=== PATIENT | female | born 1930 | race Caucasian/White ===

== ENCOUNTER 2017-02-10 19:01 | Emergency (ER) | payer MEDICARE ==
[~2017-02-10] VITALS: Ht 162.6 cm; Wt 68.0 kg
[~2017-02-10 19:01] MED LIST: ACET-171 PO; ALPR0.254 PO; AMLO5TAB2 PO; ASCO-294 PO; ASPI-973 PO; CHOL100043 PO; FUR20 PO; HYDR-4003 PO; LISI10TA PO; NITR0.4T SL; OMEP20CA11 PO; ONDA4TAB6 PO; WHEA1POW6 PO
[2017-02-10 19:14] VITALS: BP 159/53; PULSE 66; RESP 17; O2SAT 97
[2017-02-10 19:20] LABS: BASOPHILS % (AUTO) 0.7 % (0-3); EOSINOPHILS % (AUTO) 3.4 % (0-5); MONOCYTES % (AUTO) 11.5 % (4-12); Mean Corpuscular Hemoglobin 30.2 pg (27.0-35.0); NEUTROPHILS % (AUTO) 53.1 % (40-74); Platelet Count 242 bil/L (150-400)
--- NOTE | 2017-02-10 19:31 | ED.REPORT ---
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 She reports that her "pulse was driving her nuts." Pt has a hx of recurrent cp and throbbing pulse. She confirms nausea and denies diaphoresis. She also c/o left hip pain. Nursing Notes Stated Complaint: CHEST PAIN Chief Complaint: Chest Pain Nursing Notes Reviewed: Yes Allergies: Coded Allergies: atenolol (Verified Allergy, Severe, BRADYCARDIA, MALAISE, 04/10/16) amoxicillin (Verified Allergy, Unknown, 04/10/16) clavulanic acid (Verified Allergy, Unknown, 04/10/16) nitrofurantoin (Verified Allergy, Unknown, nausea/vomiting, 06/30/16) Scheduled Amlodipine (Amlodipine) 5 Mg Tablet 5 MG PO DAILY Ascorbate Calcium (Vitamin C) 500 Mg Tablet 500 MG PO DAILY Aspirin (Aspirin) 81 Mg Tablet 81 MG PO DAILY Cholecalciferol (Vitamin D3) (Vitamin D) 1,000 Unit Tablet 2,000 UNIT PO DAILY Omeprazole (Omeprazole) 20 Mg Capsule.dr MG PO DAILY Wheat Dextrin (Benefiber) 3 Gram/4 Gram Powd.pack 2 TSP PO DAILY Scheduled PRN Acetaminophen (Acetaminophen) 500 Mg Tablet 500 MG PO Q6H PRN PRN For Pain Alprazolam (Alprazolam) 0.25 Mg Tablet 0.125-0.25 MG PO TID PRN PRN For Anxiety Furosemide (Furosemide) 20 Mg Tab 10 MG PO DAILY PRN PRN edema Hydrocodone-Acetaminophen 5-325 mg (Hydrocodone-Acetaminophen 5-325 mg) 1 Each Tablet 0.5-1 EACH PO q6 hr PRN PRN For Pain Lisinopril (Lisinopril) 10 Mg Tablet 10 MG PO DAILY PRN PRN SBP>175 Nitroglycerin SL (Nitrostat) 0.4 Mg Tab.subl 0.4 MG SL Q5MIN PRN PRN chest pain Ondansetron (Zofran) 4 Mg Tablet 4 MG PO QID PRN PRN For Nausea General Time Seen by MD: 19:17 Chief Complaint Chest pain Hx Obtained From: Patient Arrived By: Ambulance Sudden in Onset?: Yes Onset Occurred: Just prior to arrival Symptom Duration: Since onset Location: : Chest left Radiation: : Does not radiate Severity: Current: Mild Past Medical History Past Medical History Notes: Myocardial profusion scan NM 01/01/13: IMPRESSION: 1. Normal myocardial perfusion images. 2. Normal left ventricular volume and systolic function. 3. No chest pain or diagnostic EKG changes for ischemia. Dictated by: Liss Calixto M.D. on 01/01/2013 at 12:56 Approved by: Liss Calixto M.D. on 01/01/2013 at 12:56 Nuclear medicine scan 04/02/12: IMPRESSION: Depressed gallbladder ejection fraction at 4%. Etiologies can include gastroparesis or obstruction. Clinical correlation is recommended. Dictated by: Brenda Goldberg M.D. on 04/02/2012 at 16:26 Approved by: Brenda Goldberg M.D. on 04/02/2012 at 16:26 Past Medical History Chronic back pain, urinary incontinence, vertigo Anemia been on iron transfusions. hospitalized for pneumonia and sepsis in July 2014. labile HTN, recent community-acquired pneumonia, mild anemia due to IV fluids, chronic back pain on narcotics, urinary incontinence, vertigo, dyslipedemia, depression, A-fib (paroxysmal, not on anticoagulation), angina C. Diff. ho ureteral laceration following biopsy in 2016 Reports: Congestive heart failure, GERD, Hyperlipidemia, Hypertension Reports: Atrial fibrillation Past Surgical History ureteral stent for ureteral injury in 2016 Reports: Cataract surgery, Cholecystectomy Reports: Hip replacement Smoking History Former Smoker Social History Alcohol Use: Denies alcohol use Drug Use: Denies drug use Other Social History: Lives alone, Local resident Ambulatory Status Independent Review of Systems Cardiovascular: Reports: Chest pain GI: Reports: Nausea Musculoskeletal: Reports: Joint pain (left hip) Skin: Denies Diaphoresis Complete sys rev & neg: except as marked. Physical Exam Initial Vital Signs Vital Signs (First) Date Time Temp Pulse Resp B/P Pulse Ox O2 Delivery O2 Flow Rate FiO2 02/10/17 19:14 36.6 66 17 159/53 97 Nasal Cannula 1 Initial VS: Reviewed, Vital signs normal Head / Eyes: Atraumatic, Normocephalic ENT: Mucous membranes moist, Conjunctiva normal Neck: Supple, Non-tender Back: No CVA tenderness Extremities: Vascular intact, No swelling Skin: Warm, Dry Neurologic: Alert, Oriented Psychiatric: Mood/affect normal, Behavior normal General/Constitutional: Awake, Alert, Cooperative, Not toxic appearing Respiratory / Chest: Atraumatic, Breath sounds NL, Breath sounds = bilat Cardiovascular: Heart rate NL, Regular rhythm, Heart sounds NL Abdomen: Atraumatic, Soft, Non-tender Interpretation & Diagnostics Lab Results Interpretation Result Diagram: 02/10/17190702/10/17 190 Test 02/10/17 19:08 02/10/17 20:04 White Blood Count 5.6th/mm3 (3.8-10.1) Red Blood Count 3.61mil/mm3 (3.90-5.20) Hemoglobin 10.9g/dL (12.0-15.6) Hematocrit 33.2% (35.0-46.0) Mean Corpuscular Volume 92.0fL (81-100) Mean Corpuscular Hemoglobin 30.2pg (27.0-35.0) Mean Corpuscular Hemoglobin Concent 32.8% (32.0-37.0) Red Cell Distribution Width 15.2% (12.3-15.4) Platelet Count 242bil/L (150-400) Neutrophils (%) (Auto) 53.1% (40-74) Lymphocytes (%) (Auto) 31.3% (14-46) Monocytes (%) (Auto) 11.5% (4-12) Eosinophils (%) (Auto) 3.4% (0-5) Basophils (%) (Auto) 0.7% (0-3) Sodium Level 137mEq/L (134-144) Potassium Level 4.1mEq/L (3.5-5.2) Chloride Level 100mEq/L (97-108) Carbon Dioxide Level 23mmol/L (18-29) Blood Urea Nitrogen 21mg/dL (8-27) Creatinine 0.69mg/dL (0.57-1.00) Estimat Glomerular Filtration Rate 115mL/min (>59) Glucose Level 106mg/dL (60-99) Calcium Level 10.3mg/dL (8.5-10.1) Magnesium Level 2.1mg/dL (1.6-2.6) Total Bilirubin 0.3mg/dL (0.0-1.2) Aspartate Amino Transf (AST/SGOT) 19U/L (0-50) Alanine Aminotransferase (ALT/SGPT) 14U/L (0-32) Alkaline Phosphatase 53U/L (25-165) Troponin T < 0.010ug/L (0.0-0.011) Total Protein 7.7g/dL (6.4-8.4) Albumin 4.4g/dL (3.4-5.0) Hold Urine Received (Received) Lab Results Interpretation: CBC nl CMp nl Troponin negative (symptoms started yesterday) ECG Interpretation ECG Interpretation: LVH Time: 19:13 Interpreted by: ED physician Normal ECG Interpretation: Normal sinus rhythm (67) X-Ray Chest Interpretation Chest Xray Interpretation: IMPRESSION: 1. Sequelae of old granulomatous disease redemonstrated without definite acute cardiopulmonary disease. Dictated by: Nithin Ching M.D. on 02/10/2017 at 21:24 Approved by: Nithin Ching M.D. on 02/10/2017 at 21:28 View: Portable Interpretation / Wet Read by: Interpret - Radiologist X-Ray Interpretation Xray Interpretation: PELVIS X-RAY IMPRESSION: 1. New round lucent lesion in the left iliac wing with a sclerotic margin and suggestion of mild periosteal reaction. 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 Further evaluation may be obtained with an MRI or bone scan. 2. Bilateral hip prostheses redemonstrated without definite evidence of hardware failure. Dictated by: Nithin Ching M.D. on 02/10/2017 at 21:30 Approved by: Nithin Ching M.D. on 02/10/2017 at 21:34 X-Ray Ordered: Pelvis Re-Eval/Medical Decision Source of Hx: Old records Counseled Regarding: Diagnosis, Lab results, Need for follow-up, When/why to return to ED Discharge & Departure Primary Impression: Chest pain Chest pain type: unspecified Qualified Code: R07.9 - Chest pain, unspecified Disposition: Home Discharge Condition All VS Reviewed: Yes Condition: Stable Referrals: Sirisha Anaya MD (PCP) Scribe Attestation Portion of this note were transcribed by Ellen Dang. Dr. Mau Coulter, personally performed the history, physical exam, and medical decision-making: I reviewed and confirmed the accuracy for the information in the transcribed note. Signed by: jazmine Dumas, 02/10/17 2100 copies to: Sirisha Anaya MD, Matthew F MD Feb 10, 2017 19:31 Ellen Dang Feb 10, 2017 19:54
[2017-02-10 19:57] LABS: Magnesium 2.1 mg/dL (1.6-2.6)
[2017-02-10 20:03] LABS: TROPONIN T < 0.010 ug/L (0.0-0.011)
--- NOTE | 2017-02-10 21:29 | DRSVH ---
PROCEDURE: X-RAY CHEST ONE VIEW, PORTABLE ([id number]) INDICATIONS: CHEST PAIN TECHNIQUE: One view of the chest was acquired. COMPARISON: [facility], CR, XR CHEST 1VW (PORTABLE), 04/10/2016, 16:35. FINDINGS: Surgical changes and devices: None. Lungs and pleura: No pleural effusions or pneumothorax. There is mild interstitial prominence redem onstrated consistent with chronic changes. 2 dense nodules are again noted in the right lung consist ent with calcified granulomas. No acute consolidation. Mediastinum: There are calcified mediastinal and right hilar lymph nodes compatible with granulomatou s disease. Heart size is normal. Bones and chest wall: No suspicious bony lesions. Overlying soft tissues appear unremarkable. IMPRESSION: 1. Sequelae of old granulomatous disease redemonstrated without definite acute cardiopulmonary disea se. Dictated by: Nithin Ching M.D. on 02/10/2017 at 21:24 Approved by: Nithin Ching M.D. on 02/10/2017 at 21:28
--- NOTE | 2017-02-10 21:36 | DRSVH ---
PROCEDURE: X-RAY PELVIS, ONE OR TWO VIEWS ([id number]) INDICATIONS: Pain L iliac crest x 1 month TECHNIQUE: 2 frontal views of the pelvis acquired. COMPARISON: [facility], CR, XR PELVIS 1 OR 2VW, 07/18/2016, 9:40. [facility] [place], CR, XR PELVIS W LATERAL HIP RT, 07/26/2016, 10:14. [facility], CR, PELVIS 1 OR 2VW, 05/28/2012, 15:13. FINDINGS: Bones: There is a round lucent lesion in the left iliac wing with sclerotic margins, measuring up to 1.5 cm. There is suggestion of associated mild periosteal reaction. Bilateral hip prostheses appea r unchanged in alignment. No periprosthetic fractures or suspicious new periprosthetic lucencies. T here is degenerative disc disease and facet arthropathy in the lower lumbar spine. Soft tissues: Visualized bowel gas pattern is normal. There is a lobulated calcification in the pel vis compatible with calcified fibroid. IMPRESSION: 1. New round lucent lesion in the left iliac wing with a sclerotic margin and suggestion of mild per iosteal reaction. 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 Furth er evaluation may be obtained with an MRI or bone scan. 2. Bilateral hip prostheses redemonstrated without definite evidence of hardware failure. Dictated by: Nithin Ching M.D. on 02/10/2017 at 21:30 Approved by: Nithin Ching M.D. on 02/10/2017 at 21:34
[2017-02-10 22:19] VITALS: BP 180/73; PULSE 71; RESP 18; O2SAT 97
== END 2017-02-10 22:21 | disposition home or self-care (01) ==
LOC: EDBD 19:01 → EDUNIT# 19:01 → SED 19:01
DX: R07.9 Chest pain, unspecified (principal); R11.0 Nausea; M25.552 Pain in left hip; I48.0 Paroxysmal atrial fibrillation; I50.9 Heart failure, unspecified; K21.9 Gastro-esophageal reflux disease without esophagitis; E78.5 Hyperlipidemia, unspecified; I10 Essential (primary) hypertension; Z96.643 Presence of artificial hip joint, bilateral; Z96.0 Presence of urogenital implants; Z87.891 Personal history of nicotine dependence; Z79.82 Long term (current) use of aspirin; Z88.8 Allergy status to other drugs, medicaments and biological substances; Z88.0 Allergy status to penicillin; Z88.1 Allergy status to other antibiotic agents

== ENCOUNTER 2017-02-18 14:53 | Emergency (ER) | payer MEDICARE ==
[~2017-02-18] VITALS: Ht 162.6 cm; Wt 68.2 kg
[2017-02-18 14:58] VITALS: BP 182/64; PULSE 68; RESP 20; O2SAT 99
--- NOTE | 2017-02-18 15:06 | ED.REPORT ---
HPI-Chest Pain 40 and Over Date of Service Feb 18, 2017 ED Provider: Dr. Holman Pt is an 87 year old female with a hx of HTN, CHF, afib, hyperlipidemia presenting to the ED from complaining of erratic blood pressure onset 1 week ago. Associated symptoms include mild headache, fatigue, chest fullness, urinary frequency. Denies abdominal pain, chest pain, dysuria, cough, sputum, numbness, weakness. She states that her blood pressure has been erratic for the past week, causing her to be fatigued. Pt takes 10mg Amlodipine and 10-20 mg Lisinopril daily. Nursing Notes Stated Complaint: CHEST PRESSURE, ERRATIC BP, FATIGUE Chief Complaint: Chest Pain Nursing Notes Reviewed: Yes Allergies: Coded Allergies: atenolol (Verified Allergy, Severe, BRADYCARDIA, MALAISE, 04/10/16) amoxicillin (Verified Allergy, Unknown, 04/10/16) clavulanic acid (Verified Allergy, Unknown, 04/10/16) nitrofurantoin (Verified Allergy, Unknown, nausea/vomiting, 06/30/16) Scheduled Amlodipine (Amlodipine) 5 Mg Tablet 5 MG PO DAILY Ascorbate Calcium (Vitamin C) 500 Mg Tablet 500 MG PO DAILY Aspirin (Aspirin) 81 Mg Tablet 81 MG PO DAILY Cholecalciferol (Vitamin D3) (Vitamin D) 1,000 Unit Tablet 2,000 UNIT PO DAILY Omeprazole (Omeprazole) 20 Mg Capsule.dr MG PO DAILY Wheat Dextrin (Benefiber) 3 Gram/4 Gram Powd.pack 2 TSP PO DAILY Scheduled PRN Acetaminophen (Acetaminophen) 500 Mg Tablet 500 MG PO Q6H PRN PRN For Pain Alprazolam (Alprazolam) 0.25 Mg Tablet 0.125-0.25 MG PO TID PRN PRN For Anxiety Furosemide (Furosemide) 20 Mg Tab 10 MG PO DAILY PRN PRN edema Hydrocodone-Acetaminophen 5-325 mg (Hydrocodone-Acetaminophen 5-325 mg) 1 Each Tablet 0.5-1 EACH PO q6 hr PRN PRN For Pain Lisinopril (Lisinopril) 10 Mg Tablet 10 MG PO DAILY PRN PRN SBP>175 Nitroglycerin SL (Nitrostat) 0.4 Mg Tab.subl 0.4 MG SL Q5MIN PRN PRN chest pain Ondansetron (Zofran) 4 Mg Tablet 4 MG PO QID PRN PRN For Nausea General Time Seen by MD: 15:05 Chief Complaint Other (Erratic blood pressure) Hx Obtained From: Patient Arrived By: Walk-in Sudden in Onset?: No Onset Occurred: 1 week ago Symptom Duration: Since onset Severity: Current: No pain currently Severity: Maximum: No pain Recent Healthcare: No recent hospitalization, Recent doctor visit Similar Sx Previous: No Past Medical History Past Medical History Notes: Myocardial profusion scan NM 01/01/13: IMPRESSION: 1. Normal myocardial perfusion images. 2. Normal left ventricular volume and systolic function. 3. No chest pain or diagnostic EKG changes for ischemia. Dictated by: Liss Calixto M.D. on 01/01/2013 at 12:56 Approved by: Liss Calixto M.D. on 01/01/2013 at 12:56 Nuclear medicine scan 04/02/12: IMPRESSION: Depressed gallbladder ejection fraction at 4%. Etiologies can include gastroparesis or obstruction. Clinical correlation is recommended. Dictated by: Brenda Goldberg M.D. on 04/02/2012 at 16:26 Approved by: Brenda Goldberg M.D. on 04/02/2012 at 16:26 Past Medical History Osteoarthritis Chronic back pain, Anemia been on iron transfusions. hospitalized for pneumonia and sepsis in July 2014. labile HTN, community-acquired pneumonia, mild anemia due to IV fluids, chronic back pain on narcotics, urinary incontinence, vertigo, dyslipedemia, depression, A-fib (paroxysmal, not on anticoagulation), angina C. Diff. ho ureteral laceration following biopsy in 2016 Diverticulosis of colon bradycardia V tach PMC Reports: Congestive heart failure, GERD, Hyperlipidemia, Hypertension Reports: Atrial fibrillation Past Surgical History ureteral stent for ureteral injury in 2016 Reports: Cataract surgery, Cholecystectomy Reports: Hip replacement Smoking History Former Smoker Social History Alcohol Use: Denies alcohol use Drug Use: Denies drug use Other Social History: Lives alone, Local resident Ambulatory Status Independent Review of Systems Constitutional: Reports: Fatigue, Denies: Chills, Fever Respiratory: Denies: Non-productive cough, Prod cough, clear Cardiovascular: Denies: Chest pain GI: Denies: Abdominal pain Neurologic: Reports: Headache, Denies: Numbness, Weakness Complete sys rev & neg: except as marked. Female: Reports: Urinary frequency, Denies: Dysuria Physical Exam Initial Vital Signs Vital Signs (First) Date Time Temp Pulse Resp B/P Pulse Ox O2 Delivery O2 Flow Rate FiO2 02/18/17 14:58 36.8 68 20 182/64 99 Room Air Initial VS: Reviewed Head / Eyes: Atraumatic, Normocephalic, PERRL ENT: Mucous membranes moist, Conjunctiva normal, No scleral icterus Neck: Supple, Non-tender, Full range of motion Skin: Warm, Dry, No cyanosis Neurologic: Alert, Oriented, Nonfocal Psychiatric: Mood/affect normal, Behavior normal, Normal thought content General/Constitutional: Awake, Alert, No acute distress, Well appearing Respiratory / Chest: Breath sounds NL, Breath sounds = bilat, No respiratory distress, No rales, No rhonchi, No wheezing, No stridor, No chest tenderness Cardiovascular: Heart rate NL, Regular rhythm, Heart sounds NL, No murmurs, Peripheral circulation NL, Pulses = bilaterally, No gross BP differential Abdomen: Soft, Non-tender, No guarding, No rebound, BS normoactive, No distention Interpretation & Diagnostics Interpretation & Diagnostics: PROCEDURE: NM HEPATOBILIARY IMAGING 04/02/12 IMPRESSION: Depressed gallbladder ejection fraction at 4%. Etiologies can include gastroparesis or obstruction. Clinical correlation is recommended. Dictated by: Brenda Goldberg M.D. on 04/02/2012 at 16:26 Lab Results Interpretation Result Diagram: 02/18/17 1530 02/18/17 1530 Test 02/18/17 15:30 02/18/17 17:25 White Blood Count 5.7th/mm3 (3.8-10.1) Red Blood Count 3.56mil/mm3 (3.90-5.20) Hemoglobin 10.7g/dL (12.0-15.6) Hematocrit 33.0% (35.0-46.0) Mean Corpuscular Volume 92.7fL (81-100) Mean Corpuscular Hemoglobin 30.1pg (27.0-35.0) Mean Corpuscular Hemoglobin Concent 32.4% (32.0-37.0) Red Cell Distribution Width 15.1% (12.3-15.4) Platelet Count 238bil/L (150-400) Neutrophils (%) (Auto) 57.6% (40-74) Lymphocytes (%) (Auto) 30.2% (14-46) Monocytes (%) (Auto) 8.8% (4-12) Eosinophils (%) (Auto) 2.5% (0-5) Basophils (%) (Auto) 0.7% (0-3) Sodium Level 138mEq/L (134-144) Potassium Level 4.2mEq/L (3.5-5.2) Chloride Level 101mEq/L (97-108) Carbon Dioxide Level 22mmol/L (18-29) Blood Urea Nitrogen 19mg/dL (8-27) Creatinine 0.56mg/dL (0.57-1.00) Estimat Glomerular Filtration Rate 146mL/min (>59) Glucose Level 107mg/dL (60-99) Calcium Level 10.1mg/dL (8.5-10.1) Magnesium Level 2.1mg/dL (1.6-2.6) Total Bilirubin 0.4mg/dL (0.0-1.2) Aspartate Amino Transf (AST/SGOT) 20U/L (0-50) Alanine Aminotransferase (ALT/SGPT) 12U/L (0-32) Alkaline Phosphatase 52U/L (25-165) Total Protein 7.8g/dL (6.4-8.4) Albumin 4.3g/dL (3.4-5.0) Hold [place] Tube Received (Received) Troponin T < 0.010ug/L (0.0-0.011) ECG Interpretation ECG Interpretation: No ST changes. Probable LVH. Time: 15:09 Interpreted by: ED physician Normal ECG Interpretation: Normal rate (61), Normal sinus rhythm X-Ray Chest Interpretation Chest Xray Interpretation: IMPRESSION: No acute process. Dictated by: Noé Palafox M.D. on 02/18/2017 at 15:33 View: Portable, 1 view Interpretation / Wet Read by: Interpret - Radiologist CT Head Interpretation IMPRESSION: 1. No acute intracranial abnormality. 2. Volume loss and small vessel ischemic disease. Dictated by: Noé Palafox M.D. on 02/18/2017 at 16:05 CT Chest Interpretation IMPRESSION: 1. Bilateral lower lobe pneumonia. 2. No pulmonary embolus. 3. Remote granulomatous disease. Dictated by: Noé Palafox M.D. on 02/18/2017 at 17:55 Study type: CT pulm angiogram Interpretation / Wet Read by: Interpret - Radiologist Re-Eval/Medical Decision Med Decision/Clinical Course Overall no obvious life threatening pathology can be found, the patient has no signs or symptoms of pneumonia and declines antibiotics in the ER. Recommend that she increase her dose of daily lisinopril and be diligent about taking amlodipine. Her PCP provider burial needs salesperson was contacted and agrees to establish close follow-up. Return precautions given. Time of Eval: 18:18 Patient Status: Condition improved Re-Evaluation/Progress Note: Denies cough, sputum, fever or chills. Time of Eval: 18:28 Patient Status: Condition improved Re-Evaluation/Progress Note: Discussed consultation with PCP and plan for discharge. Pt understands and agrees. 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 Mena burial needs salesperson for Dr. Anaya. Call in the morning and will get her into the clinic. Agrees with plan for no antibiotics. Counseled Regarding: Diagnosis, Lab results, Need for follow-up, When/why to return to ED Discharge & Departure Primary Impression: Hypertension Hypertension type: unspecified secondary hypertension Hypertension goal: unspecified goal Qualified Code: I15.9 - Secondary hypertension, unspecified Disposition: Home Discharge Condition All VS Reviewed: Yes Condition: Improved Patient Instructions: Angina (ED) Additional Instructions: No obvious life-threatening cause for your symptoms can be found. Continue taking your amlodipine at 5 mg twice a day. Take lisinopril 20 mg in the morning. Call your primary care doctor's office in the morning for a close follow-up appointment. Return to the ER if you develop severe chest pain, severe trouble breathing, lethargy, severe headache or any other life-threatening concerns. Referrals: Sirisha Anaya MD (PCP) Hazel Attestation Portions of this note were transcribed by Dania Crocker. I, Dr. Holman personally performed the history, physical exam and medical decision-making; I reviewed and confirmed the accuracy of the information in the transcribed note. Signed by: Hazel Jay, 02/18/2017 at 1825. copies to: Sirisha Anaya MD, Timothy S DO Feb 18, 2017 15:05 DANIA CROCKER Feb 18, 2017 15:23
[2017-02-18 15:15] VITALS: BP 174/66; PULSE 68; RESP 16; O2SAT 97
[2017-02-18 15:35] LABS: Mean Corpuscular Volume 92.7 fL (81-100)
--- NOTE | 2017-02-18 15:36 | DRSVH ---
PROCEDURE: X-RAY CHEST ONE VIEW, PORTABLE ([id number]) INDICATIONS: CHEST PAIN TECHNIQUE: One view of the chest was acquired. COMPARISON: [facility], CR, XR CHEST 1VW (PORTABLE), 02/10/2017, 19:11. [facility], CR, XR CHEST 1VW (PORTABLE), 04/10/2016, 16:35. FINDINGS: Surgical changes and devices: None. Lungs and pleura: No pleural effusions or pneumothorax. No change in mild chronic appearing intersti tial pulmonary opacity. Lungs are otherwise clear. Mediastinum: Mediastinal contours appear normal. Heart size is normal. Bones and chest wall: No suspicious bony lesions. Overlying soft tissues appear unremarkable. IMPRESSION: No acute process. Dictated by: Noé Palafox M.D. on 02/18/2017 at 15:33 Approved by: Noé Palafox M.D. on 02/18/2017 at 15:34
[2017-02-18 15:44] LABS: BASOPHILS % (AUTO) 0.7 % (0-3); EOSINOPHILS % (AUTO) 2.5 % (0-5); MONOCYTES % (AUTO) 8.8 % (4-12); Mean Corpuscular Hemoglobin 30.1 pg (27.0-35.0); NEUTROPHILS % (AUTO) 57.6 % (40-74); Platelet Count 238 bil/L (150-400)
[2017-02-18 15:54] LABS: TROPONIN T < 0.010 ug/L (0.0-0.011)
[2017-02-18 16:04] LABS: Magnesium 2.1 mg/dL (1.6-2.6)
--- NOTE | 2017-02-18 16:07 | DRSVH ---
PROCEDURE: CT BRAIN WITHOUT CONTRAST ([id number]) INDICATIONS: headache TECHNIQUE: Noncontrast 4.5 mm thick angled axial sections acquired from the foramen magnum to the vertex, with c oronal reformats. COMPARISON: , MR, STROKE PROTOCOL (PNL), 01/09/2015, 20:16. FINDINGS: Image quality: Excellent. CSF spaces: Basal cisterns are patent. No extra-axial fluid collections. The ventricles are symmet jovany in size and shape. Brain: No intracranial bleeds or masses. There is cerebral volume loss for age, with resultant vent ricular and sulcal prominence. There are periventricular and deep white matter chronic small vessel ischemic changes. There is intracranial internal carotid artery atherosclerosis. Skull and face: Calvarium and visualized facial bones appear intact, without suspicious lesions. Sinuses: Visualized sinuses and mastoids are clear. IMPRESSION: 1. No acute intracranial abnormality. 2. Volume loss and small vessel ischemic disease. Dictated by: Noé Palafox M.D. on 02/18/2017 at 16:05 Approved by: Noé Palafox M.D. on 02/18/2017 at 16:05
[2017-02-18 16:19] VITALS: BP 168/62; PULSE 69; RESP 18; O2SAT 97
[2017-02-18 17:30] VITALS: BP 158/60; PULSE 76; RESP 18; O2SAT 98
--- NOTE | 2017-02-18 17:59 | DRSVH ---
PROCEDURE: CT ANGIO CHEST PULMONARY EMBOLISM ([id number]) INDICATIONS: chest pain TECHNIQUE: After the administration of intravenous contrast, 2 mm thick sections acquired from the pulmonary api nino to the posterior costophrenic angles. 3-dimensional maximum intensity projection (MIP) coronal a nd sagittal reformats were then acquired through the thorax. For radiation dose reduction, the follo wing was used: automated exposure control, adjustment of mA and/or kV according to patient size. COMPARISON: [facility], CT, CHEST WITH CONTRAST, 10/01/2014, 14:28. FINDINGS: Image quality: Excellent. Pulmonary arteries: Pulmonary arteries are normal in size, and demonstrate no intraluminal filling d efects to suggest central pulmonary embolism. Lungs and pleura: There is mild groundglass density within the bilateral lower lobes. Calcified granu mendez within the right upper lobe anteriorly. No pleural effusions or pneumothorax. Central and perip heral airways are patent. Mediastinum: Heart size is normal, without pericardial effusion. There is calcification of the fanny nary vasculature. No mediastinal or hilar adenopathy. Calcified right hilar lymph nodes are present. Thoracic aorta is normal in caliber and enhancement. Esophagus is normal in caliber, without hiatal hernia. Bones and chest wall: No suspicious bony lesions. Ribs and thoracic spine appear intact throughout. Thyroid gland is within normal limits. No axillary or supraclavicular adenopathy. Abdomen: Visualized portions of the upper abdomen demonstrate multiple hepatosplenic calcifications. IMPRESSION: 1. Bilateral lower lobe pneumonia. 2. No pulmonary embolus. 3. Remote granulomatous disease. Dictated by: Noé Palafox M.D. on 02/18/2017 at 17:55 Approved by: Noé Palafox M.D. on 02/18/2017 at 17:58
[2017-02-18 19:06] VITALS: BP 156/64; PULSE 76; RESP 21; O2SAT 95
== END 2017-02-18 18:57 | disposition home or self-care (01) ==
LOC: SED 14:53
DX: I15.9 Secondary hypertension, unspecified (principal); I50.9 Heart failure, unspecified; I48.91 Unspecified atrial fibrillation; E78.5 Hyperlipidemia, unspecified; K21.9 Gastro-esophageal reflux disease without esophagitis; Z87.891 Personal history of nicotine dependence; Z88.8 Allergy status to other drugs, medicaments and biological substances; Z88.1 Allergy status to other antibiotic agents; Z79.82 Long term (current) use of aspirin; Z87.01 Personal history of pneumonia (recurrent)
CPT/HCPCS: 36415; 70450; 71010; 71275; 80053; 83735; 84484; 85025; 93005; 99285; Q9967

== ENCOUNTER 2017-04-03 13:03 | Emergency (ER) | payer MEDICARE ==
--- NOTE | 2017-04-03 13:15 | ED.REPORT ---
HPI-General Illness Date of Service April 03, 2017 ED Provider: Dr. Herrera 87 y/o female with a hx of HTN, CHF, A-fib, aortic stenosis and diastolic dysfunction presents to the ED via EMS complaining of high blood pressure, onset this morning. The pt reports she checked her BP today as she does everyday and it was 165. She took a Xanax which lowered her BP slightly. The pt reports her BP always fluctuates. She also complains of nausea, onset last night , lightheadedness, generalized weakness and SOB this morning. She states "it feels like I've just run two miles". The pt denies headache, chest pain or nausea at present. The pt denies any improvement in breathing since arriving at the ED. Nursing Notes Stated Complaint: HIGH BLOOD PRESSURE Nursing Notes Reviewed: Yes Allergies: Coded Allergies: atenolol (Verified Allergy, Severe, BRADYCARDIA, MALAISE, 04/10/16) amoxicillin (Verified Allergy, Unknown, 04/10/16) clavulanic acid (Verified Allergy, Unknown, 04/10/16) nitrofurantoin (Verified Allergy, Unknown, nausea/vomiting, 06/30/16) Scheduled Amlodipine (Amlodipine) 5 Mg Tablet 5 MG PO DAILY Ascorbate Calcium (Vitamin C) 500 Mg Tablet 500 MG PO DAILY Aspirin (Aspirin) 81 Mg Tablet 81 MG PO DAILY Cholecalciferol (Vitamin D3) (Vitamin D) 1,000 Unit Tablet 2,000 UNIT PO DAILY Omeprazole (Omeprazole) 20 Mg Capsule.dr MG PO DAILY Wheat Dextrin (Benefiber) 3 Gram/4 Gram Powd.pack 2 TSP PO DAILY Scheduled PRN Acetaminophen (Acetaminophen) 500 Mg Tablet 500 MG PO Q6H PRN PRN For Pain Alprazolam (Alprazolam) 0.25 Mg Tablet 0.125-0.25 MG PO TID PRN PRN For Anxiety Furosemide (Furosemide) 20 Mg Tab 10 MG PO DAILY PRN PRN edema Hydrocodone-Acetaminophen 5-325 mg (Hydrocodone-Acetaminophen 5-325 mg) 1 Each Tablet 0.5-1 EACH PO q6 hr PRN PRN For Pain Lisinopril (Lisinopril) 10 Mg Tablet 10 MG PO DAILY PRN PRN SBP>175 Nitroglycerin SL (Nitrostat) 0.4 Mg Tab.subl 0.4 MG SL Q5MIN PRN PRN chest pain Ondansetron (Zofran) 4 Mg Tablet 4 MG PO QID PRN PRN For Nausea General Time Seen by MD: 13:15 Chief Complaint Other (High blood pressure) Hx Obtained From: Patient Arrived By: Ambulance Sudden in Onset?: No Onset Occurred: 21 - 23 hours ago Symptom Duration: Since onset Severity: Current: No pain currently Severity: Maximum: No pain Recent Healthcare: Recent doctor visit Similar Sx Previous: Yes Past Medical History Past Medical History Notes: Myocardial profusion scan NM 01/01/13: IMPRESSION: 1. Normal myocardial perfusion images. 2. Normal left ventricular volume and systolic function. 3. No chest pain or diagnostic EKG changes for ischemia. Dictated by: Liss Calixto M.D. on 01/01/2013 at 12:56 Approved by: Liss Calixto M.D. on 01/01/2013 at 12:56 Nuclear medicine scan 04/02/12: IMPRESSION: Depressed gallbladder ejection fraction at 4%. Etiologies can include gastroparesis or obstruction. Clinical correlation is recommended. Dictated by: Brenda Goldberg M.D. on 04/02/2012 at 16:26 Approved by: Brenda Goldberg M.D. on 04/02/2012 at 16:26 Past Medical History Osteoarthritis Chronic back pain, Anemia been on iron transfusions. hospitalized for pneumonia and sepsis in July 2014. labile HTN, community-acquired pneumonia, mild anemia due to IV fluids, chronic back pain on narcotics, urinary incontinence, vertigo, dyslipedemia, depression, A-fib (paroxysmal, not on anticoagulation), angina C. Diff. ho ureteral laceration following biopsy in 2016 Diverticulosis of colon bradycardia V tach PMC Aortic stenosis Diastolic dysfunction Reports: Congestive heart failure, GERD, Hyperlipidemia, Hypertension Reports: Atrial fibrillation Past Surgical History ureteral stent for ureteral injury in 2016 Reports: Cataract surgery, Cholecystectomy Reports: Hip replacement Smoking History Former Smoker Social History Alcohol Use: Denies alcohol use Drug Use: Denies drug use Other Social History: Lives alone, Local resident Ambulatory Status Independent Review of Systems Full Review of Systems Respiratory: Reports: Wheezing Cardiovascular: Denies: Chest pain GI: Reports: Nausea Neurologic: Reports: Lightheaded, Denies: Headache Complete sys rev & neg: except as marked. Physical Exam Vital Signs Vital Signs Date Time Temp Pulse Resp B/P Pulse Ox O2 Delivery O2 Flow Rate FiO2 04/03/17 18:11 36.3 82 23 168/48 96 Room Air 04/03/17 16:00 61 21 168/48 96 Room Air 04/03/17 15:01 67 15 164/47 97 Room Air 04/03/17 14:34 56 14 176/53 97 Room Air 04/03/17 13:20 36.3 61 16 180/56 98 Room Air Initial VS: Reviewed, Vital signs abnormal Head / Eyes: Atraumatic, Normocephalic, PERRL Neck: Supple, Non-tender, Full range of motion Abdomen / GI: Soft, Non-tender, No guarding, No rebound, No distention Extremities: Vascular intact, Neuro intact, No tenderness Skin: Warm, Dry, No cyanosis Neurologic: Alert, Oriented, Nonfocal General/Constitutional: Awake, Alert, Cooperative Respiratory / Chest: Atraumatic, No respiratory distress, No rhonchi, No wheezing Right basilar rales. Cardiovascular: Heart rate NL, Regular rhythm, Heart sounds NL, No gallop, No murmurs, No rubs Trace edema on lower extremities bilaterally. Back: Atraumatic, Full range of motion Upper Extremities Upper Extremity / MS: Atraumatic, Full range of motion, No deformity, Neurologic intact, Vascular intact Lower Extremity / Pelvis / MS: Atraumatic, Full range of motion, No deformity, Neurologic intact, Vascular intact Interpretation & Diagnostics Lab Results Interpretation Result Diagram: 04/03/17 1404 04/03/17 1404 Test 04/03/17 13:29 04/03/17 13:47 04/03/17 14:04 04/03/17 15:54 Hold Urine Received (Received) Urine Color Straw (YELLOW) Urine Appearance Hazy (CLEAR,HAZY) Urine pH 7.0 (5.0-8.0) Urine Specific [place] 1.005 (1.003-1.035) Urine Protein Negativemg/dL (NEG,TRACE) Urine Glucose (UA) Negativemg/dL (NEGATIVE) Urine Ketones Negativemg/dL (NEGATIVE) Urine Occult Blood Negative (NEGATIVE) Urine Nitrite Negative (NEGATIVE) Urine Bilirubin Negative (NEGATIVE) Urine Urobilinogen Normalmg/dL (NORMAL) Urine Leukocyte Esterase Negative (NEGATIVE) Urine RBC 0-2/hpf (0-2) Urine WBC 0-5/hpf (0-5) Urine Epithelial Cells Occasional/hpf (NONE-MOD) Urine Crystals None seen (NONE SEEN) Urine Bacteria None/hpf (NONE-FEW) Urine Hyaline Casts None/lpf (NONE) Urine Granular Casts None seen (NONE SEEN) Urine Waxy Casts None seen (NONE SEEN) Urine Red Blood Cell Casts None seen (NONE SEEN) Urine White Blood Cell Casts None seen (NONE SEEN) Urine Mucus None seen (None Seen) Urine Trichomonas None seen (NONE SEEN) Urine Yeast None (NONE SEEN) Urinalysis Comment None Urine Culture Reflexed Not indicated White Blood Count 6.3th/mm3 (3.8-10.1) Red Blood Count 3.64mil/mm3 (3.90-5.20) Hemoglobin 11.1g/dL (12.0-15.6) Hematocrit 33.7% (35.0-46.0) Mean Corpuscular Volume 92.6fL (81-100) Mean Corpuscular Hemoglobin 30.5pg (27.0-35.0) Mean Corpuscular Hemoglobin Concent 32.9% (32.0-37.0) Red Cell Distribution Width 15.0% (12.3-15.4) Platelet Count 233bil/L (150-400) Neutrophils (%) (Auto) 62.7% (40-74) Lymphocytes (%) (Auto) 25.1% (14-46) Monocytes (%) (Auto) 9.2% (4-12) Eosinophils (%) (Auto) 2.2% (0-5) Basophils (%) (Auto) 0.6% (0-3) Prothrombin Time 10.0sec (8.1-12.5) Prothromb Time International Ratio 0.94ratio Sodium Level 139mEq/L (134-144) Potassium Level 4.4mEq/L (3.5-5.2) Chloride Level 102mEq/L (97-108) Carbon Dioxide Level 22mmol/L (18-29) Blood Urea Nitrogen 22mg/dL (8-27) Creatinine 0.54mg/dL (0.57-1.00) Estimat Glomerular Filtration Rate 152mL/min (>59) Glucose Level 97mg/dL (60-99) Calcium Level 10.0mg/dL (8.5-10.1) Magnesium Level 2.2mg/dL (1.6-2.6) Total Bilirubin 0.4mg/dL (0.0-1.2) Aspartate Amino Transf (AST/SGOT) 24U/L (0-50) Alanine Aminotransferase (ALT/SGPT) 12U/L (0-32) Alkaline Phosphatase 50U/L (25-165) Pro-B-Type Natriuretic Peptide 232.6pg/mL (0-738) Total Protein 7.7g/dL (6.4-8.4) Albumin 4.1g/dL (3.4-5.0) Hold [place]ube Received (Received) Troponin T < 0.010ug/L (0.0-0.011) ECG Interpretation ECG Interpretation: Sinus bradycardia. Rate 58 Q wave anterior infarct, V1, V2 and V3 No ST or T wave changes Similar to EKG taken on 02/18/2017 Time: 13:52 Interpreted by: ED physician X-Ray Chest Interpretation Chest Xray Interpretation: IMPRESSION: Questionable developing right infrahilar airspace disease may represent atelectasis or chronic lung changes. Please correlate clinically to exclude pneumonia. No overt heart failure. Dictated by: Cholo Schrader M.D. on 04/03/2017 at 13:04 Approved by: Cholo Schrader M.D. on 04/03/2017 at 13:05 View: Portable, 1 view Interpretation / Wet Read by: Interpret - Radiologist Re-Eval/Medical Decision Med Decision/Clinical Course The patient presents with multiple complaints that she is concerned may be related to her blood pressure. Sometimes the symptoms and sometimes she does not. She took a Xanax because she has a history of anxiety and says some of her symptoms did improve but she still has some residual symptoms and her blood pressure continued to be elevated. While here the patient's symptoms completely resolved and her blood pressure settled around 160s. Partial list of differential diagnoses considered were hypertensive emergency, congestive heart failure, acute coronary syndrome, pulmonary embolus, and anxiety. Source of Hx: Old records (Mention of CHF but could not find an echocardiogram. ) Time of Eval: 15:00 Re-Evaluation/Progress Note: Rechecked pt. She reports mild relief. Discussed imaging results with the pt. Time of Eval: 15:25 Patient Status: Condition improved Re-Evaluation/Progress Note: Rechecked pt. Pt states she feels better. Informed the pt of pending lab results. Time of Eval: 17:12 Patient Status: Condition improved Re-Evaluation/Progress Note: Rechecked pt. Discussed lab, imaging results and diagnosis. Informed the pt of the plan to discharge. Pt understands and agrees with plan. F/U instructions and RTER warning given. All questions addressed. Counseled Regarding: Diagnosis, Lab results Discharge & Departure Primary Impression: Poorly controlled blood pressure Disposition: Home Discharge Condition All VS Reviewed: Yes Condition: Stable Patient Instructions: Hypertension (ED) Additional Instructions: Your labs and imaging results were reassuring. Follow up with your doctor for better blood pressure control and further evaluation. Return to the emergency department in case of recurrent or worsening symptoms. Referrals: Sirisha Anaya MD (PCP) Scribe Attestation Portions of this note were transcribed by Emili Chin. I, , personally performed the history, physical exam and medical decision-making;I reviewed and confirmed the accuracy of the information in the transcribed note. Signed by Hazel Serrano. 04/03/17 5229 copies to: Sirisha Anaya MD, Jena M MD April 03, 2017 13:15 Emili Chin April 03, 2017 13:46
[2017-04-03 13:20] VITALS: BP 180/56; PULSE 61; RESP 16; O2SAT 98
[2017-04-03] MEDS ORDERED: Nitroglycerin 2% 1 Gm Ointment TOPICAL ONE (13:45)
[2017-04-03 13:59] LABS: APPEARANCE,URINE HAZY (CLEAR,HAZY); COLOR,URINE STRAW (YELLOW); OCCULT BLOOD,URINE NEGATIVE (NEGATIVE); UROBILINOGEN,URINE NORMAL (NORMAL)
--- NOTE | 2017-04-03 14:07 | DRSVH ---
PROCEDURE: X-RAY CHEST ONE VIEW, PORTABLE ([id number]) INDICATIONS: dyspnea TECHNIQUE: One view of the chest was acquired. COMPARISON: [facility], CR, XR CHEST 1VW (PORTABLE), 02/18/2017, 15:08. FINDINGS: Surgical changes and devices: None. Lungs and pleura: Developing airspace disease within the right infrahilar region appears to be presen t. Calcified granulomas and probable small calcified right hilar lymph nodes are present. Slight in terstitial prominence within the left infrahilar region is present. No lobar consolidation, effusion , or pneumothorax is identified. Mediastinum: Mediastinal contours appear normal. Heart size is normal. There is aortic atherosclerosis. Bones and chest wall: No suspicious bony lesions. Overlying soft tissues appear unremarkable. IMPRESSION: Questionable developing right infrahilar airspace disease may represent atelectasis or ch ronic lung changes. Please correlate clinically to exclude pneumonia. No overt heart failure. Dictated by: Cholo Schrader M.D. on 04/03/2017 at 13:04 Approved by: Cholo Schrader M.D. on 04/03/2017 at 13:05
[2017-04-03 14:19] LABS: BASOPHILS % (AUTO) 0.6 % (0-3); EOSINOPHILS % (AUTO) 2.2 % (0-5); MONOCYTES % (AUTO) 9.2 % (4-12); Mean Corpuscular Hemoglobin 30.5 pg (27.0-35.0); Mean Corpuscular Volume 92.6 fL (81-100); NEUTROPHILS % (AUTO) 62.7 % (40-74); Platelet Count 233 bil/L (150-400)
[2017-04-03 14:34] VITALS: BP 176/53; PULSE 56; RESP 14; O2SAT 97
[2017-04-03 14:46] LABS: INR 0.94 ratio
[2017-04-03 15:01] VITALS: BP 164/47; PULSE 67; RESP 15; O2SAT 97
[2017-04-03 15:03] LABS: Magnesium 2.2 mg/dL (1.6-2.6)
[2017-04-03 15:05] LABS: TROPONIN T < 0.010 ug/L (0.0-0.011)
[2017-04-03 16:00] VITALS: BP 168/48; PULSE 61; RESP 21; O2SAT 96
[2017-04-03 18:11] VITALS: BP 168/48; PULSE 82; RESP 23; O2SAT 96
[2017-05-10] MEDS ORDERED: ALEN70TA2 PO (11:13)
== END 2017-04-03 18:00 | disposition home or self-care (01) ==
LOC: EDBD 13:03 → SED 13:03
DX: I10 Essential (primary) hypertension (principal); R11.0 Nausea; R42 Dizziness and giddiness; R53.1 Weakness; R06.02 Shortness of breath; I50.9 Heart failure, unspecified; K21.9 Gastro-esophageal reflux disease without esophagitis; E78.5 Hyperlipidemia, unspecified; Z79.01 Long term (current) use of anticoagulants; F32.9 Major depressive disorder, single episode, unspecified; Z87.891 Personal history of nicotine dependence; Z88.8 Allergy status to other drugs, medicaments and biological substances; Z88.1 Allergy status to other antibiotic agents; Z79.82 Long term (current) use of aspirin

== ENCOUNTER 2017-04-14 13:43 | Emergency (ER) | payer MEDICARE ==
[~2017-04-14] VITALS: Ht 160 cm; Wt 68.2 kg
[2017-04-14 13:43] VITALS: BP 181/59; PULSE 78; RESP 17; O2SAT 96
[2017-04-14 14:16] LABS: BASOPHILS % (AUTO) 0.6 % (0-3); MONOCYTES % (AUTO) 8.2 % (4-12); Mean Corpuscular Hemoglobin 30.3 pg (27.0-35.0); Mean Corpuscular Volume 92.8 fL (81-100); NEUTROPHILS % (AUTO) 55.5 % (40-74); Platelet Count 223 bil/L (150-400)
[2017-04-14 14:37] LABS: Magnesium 1.9 mg/dL (1.6-2.6)
[2017-04-14 14:47] LABS: APPEARANCE,URINE CLEAR (CLEAR,HAZY); COLOR,URINE YELLOW (YELLOW); OCCULT BLOOD,URINE NEGATIVE (NEGATIVE); PH,URINE 6.5 (5.0-8.0); UROBILINOGEN,URINE NORMAL (NORMAL)
--- NOTE | 2017-04-14 15:05 | ED.REPORT ---
HPI-GI Bleed Date of Service April 14, 2017 ED Provider: Dr. Bogdan Herbert The patient is an 87 y/o female with a hx of diverticulitis, HTN, CHF, A-fib, aortic stenosis and diastolic dysfunction presents to the ED via EMS due to black stool onset 15 hrs ago. She woke up at midnight and noticed that her stool was black and soft. Since onset, she has had 8 bowel movements. She denies hematochezia, nausea, vomiting, lightheadedness, chest pain, dysuria, and SOB. She has never had issues with blood in her stool before. The pt is not on blood thinners. She was last seen at the ED 04/03/17 for high blood pressure. Her PCP is Dr. Sirisha Anaya. Nursing Notes Stated Complaint: RECTAL BLEEDING Chief Complaint: General Complaint Nursing Notes Reviewed: Yes Allergies: Coded Allergies: atenolol (Verified Allergy, Severe, BRADYCARDIA, MALAISE, 04/10/16) amoxicillin (Verified Allergy, Unknown, 04/10/16) clavulanic acid (Verified Allergy, Unknown, 04/10/16) nitrofurantoin (Verified Allergy, Unknown, nausea/vomiting, 06/30/16) Scheduled Amlodipine (Amlodipine) 5 Mg Tablet 5 MG PO DAILY Ascorbate Calcium (Vitamin C) 500 Mg Tablet 500 MG PO DAILY Aspirin (Aspirin) 81 Mg Tablet 81 MG PO DAILY Cholecalciferol (Vitamin D3) (Vitamin D) 1,000 Unit Tablet 2,000 UNIT PO DAILY Omeprazole (Omeprazole) 20 Mg Capsule.dr MG PO DAILY Omeprazole (Omeprazole) 20 Mg Tablet.dr 20 MG PO BID Wheat Dextrin (Benefiber) 3 Gram/4 Gram Powd.pack 2 TSP PO DAILY Scheduled PRN Acetaminophen (Acetaminophen) 500 Mg Tablet 500 MG PO Q6H PRN PRN For Pain Alprazolam (Alprazolam) 0.25 Mg Tablet 0.125-0.25 MG PO TID PRN PRN For Anxiety Furosemide (Furosemide) 20 Mg Tab 10 MG PO DAILY PRN PRN edema Hydrocodone-Acetaminophen 5-325 mg (Hydrocodone-Acetaminophen 5-325 mg) 1 Each Tablet 0.5-1 EACH PO q6 hr PRN PRN For Pain Lisinopril (Lisinopril) 10 Mg Tablet 10 MG PO DAILY PRN PRN SBP>175 Nitroglycerin SL (Nitrostat) 0.4 Mg Tab.subl 0.4 MG SL Q5MIN PRN PRN chest pain Ondansetron (Zofran) 4 Mg Tablet 4 MG PO QID PRN PRN For Nausea General Time Seen by Provider: 15:18 Chief Complaint Chief Complaint: Other (black stool) Hx Obtained From: Patient Arrived By: Walk-in Onset Occurred: 13 - 16 hours ago Symptom Duration: Since onset Severity: Current: No pain currently Recent Healthcare: Recent doctor visit Similar Sx Previous: No Past Medical History Past Medical History Notes: Myocardial profusion scan NM 01/01/13: IMPRESSION: 1. Normal myocardial perfusion images. 2. Normal left ventricular volume and systolic function. 3. No chest pain or diagnostic EKG changes for ischemia. Dictated by: Liss Calixto M.D. on 01/01/2013 at 12:56 Approved by: Liss Calixto M.D. on 01/01/2013 at 12:56 Nuclear medicine scan 04/02/12: IMPRESSION: Depressed gallbladder ejection fraction at 4%. Etiologies can include gastroparesis or obstruction. Clinical correlation is recommended. Dictated by: Brenda Goldberg M.D. on 04/02/2012 at 16:26 Approved by: Brenda Goldberg M.D. on 04/02/2012 at 16:26 Past Medical History Osteoarthritis Chronic back pain, Anemia been on iron transfusions. hospitalized for pneumonia and sepsis in July 2014. labile HTN, community-acquired pneumonia, mild anemia due to IV fluids, chronic back pain on narcotics, urinary incontinence, vertigo, dyslipedemia, depression, A-fib (paroxysmal, not on anticoagulation), angina C. Diff. ho ureteral laceration following biopsy in 2016 Diverticulosis of colon bradycardia V tach PMC Aortic stenosis Diastolic dysfunction Reports: Congestive heart failure, GERD, Hyperlipidemia, Hypertension Reports: Atrial fibrillation Past Surgical History ureteral stent for ureteral injury in 2016 Reports: Cataract surgery, Cholecystectomy Reports: Hip replacement Smoking History Former Smoker Social History Alcohol Use: Denies alcohol use Drug Use: Denies drug use Other Social History: Lives alone, Local resident Ambulatory Status Independent Review of Systems Respiratory: Denies: Shortness of breath Cardiovascular: Denies: Chest pain GI: Reports: Bloody/tarry stool, Denies: Hematochezia, Nausea, Vomiting Neurologic: Denies: Lightheaded Complete sys rev & neg: except as marked. Female: Denies: Dysuria Physical Exam Initial Vital Signs Vital Signs (First) Date Time Temp Pulse Resp B/P Pulse Ox O2 Delivery O2 Flow Rate FiO2 04/14/17 13:43 36.7 78 17 181/59 96 Room Air Initial VS: Reviewed Head / Eyes: Atraumatic, Normocephalic, PERRL ENT: Mucous membranes moist Neck: Supple Skin: Warm, Dry General/Constitutional: Awake, Alert, No acute distress, Cooperative, Not toxic appearing Respiratory / Chest: Atraumatic, Breath sounds NL, No respiratory distress, No rales, No rhonchi, No wheezing Heart Rate / Rhythm: Positive: Irreg irregular rhythm Heart Sounds / Murmur: Positive: Systolic murmur present.. (III/) Abdomen: Soft, Non-tender, BS normoactive Upper Extremity / MS: Atraumatic, Full range of motion, No deformity Lower Extremity / Pelvis / MS: Atraumatic, Full range of motion, No deformity Interpretation & Diagnostics Lab Results Interpretation Result Diagram: 04/14/17 1400 04/14/17 1400 Test 04/14/17 14:00 04/14/17 14:20 White Blood Count 5.0th/mm3 (3.8-10.1) Red Blood Count 3.47mil/mm3 (3.90-5.20) Hemoglobin 10.5g/dL (12.0-15.6) Hematocrit 32.2% (35.0-46.0) Mean Corpuscular Volume 92.8fL (81-100) Mean Corpuscular Hemoglobin 30.3pg (27.0-35.0) Mean Corpuscular Hemoglobin Concent 32.6% (32.0-37.0) Red Cell Distribution Width 14.8% (12.3-15.4) Platelet Count 223bil/L (150-400) Neutrophils (%) (Auto) 55.5% (40-74) Lymphocytes (%) (Auto) 33.7% (14-46) Monocytes (%) (Auto) 8.2% (4-12) Eosinophils (%) (Auto) 2.0% (0-5) Basophils (%) (Auto) 0.6% (0-3) Sodium Level 139mEq/L (134-144) Potassium Level 3.8mEq/L (3.5-5.2) Chloride Level 102mEq/L (97-108) Carbon Dioxide Level 25mmol/L (18-29) Blood Urea Nitrogen 16mg/dL (8-27) Creatinine 0.54mg/dL (0.57-1.00) Estimat Glomerular Filtration Rate 152mL/min (>59) Glucose Level 116mg/dL (60-99) Calcium Level 9.9mg/dL (8.5-10.1) Magnesium Level 1.9mg/dL (1.6-2.6) Total Bilirubin 0.4mg/dL (0.0-1.2) Aspartate Amino Transf (AST/SGOT) 19U/L (0-50) Alanine Aminotransferase (ALT/SGPT) 10U/L (0-32) Alkaline Phosphatase 50U/L (25-165) Total Protein 7.2g/dL (6.4-8.4) Albumin 3.9g/dL (3.4-5.0) Lipase 25U/L (13-60) Urine Color Yellow (YELLOW) Urine Appearance Clear (CLEAR,HAZY) Urine pH 6.5 (5.0-8.0) Urine Specific [place] <1.005 (1.003-1.035) Urine Protein Negativemg/dL (NEG,TRACE) Urine Glucose (UA) Negativemg/dL (NEGATIVE) Urine Ketones Negativemg/dL (NEGATIVE) Urine Occult Blood Negative (NEGATIVE) Urine Nitrite Negative (NEGATIVE) Urine Bilirubin Negative (NEGATIVE) Urine Urobilinogen Normalmg/dL (NORMAL) Urine Leukocyte Esterase Negative (NEGATIVE) Urine RBC 0-2/hpf (0-2) Urine WBC 0-5/hpf (0-5) Urine Epithelial Cells Few/hpf (NONE-MOD) Urine Crystals None seen (NONE SEEN) Urine Bacteria None/hpf (NONE-FEW) Urine Hyaline Casts None/lpf (NONE) Urine Granular Casts None seen (NONE SEEN) Urine Waxy Casts None seen (NONE SEEN) Urine Red Blood Cell Casts None seen (NONE SEEN) Urine White Blood Cell Casts None seen (NONE SEEN) Urine Mucus None seen (None Seen) Urine Trichomonas None seen (NONE SEEN) Urine Yeast None (NONE SEEN) Urinalysis Comment None Urine Culture Reflexed Not indicated Re-Eval/Medical Decision Med Decision/Clinical Course 87-year-old female with a history of melena though no melena on rectal exam. She is not orthostatic and blood counts are stable. We considered observation admission which the patient did not wish to do. Patient seems reliable and will double her omeprazole dosing and is discharged home. Re-Evaluation/Progress : Time of Eval: 17:20 Re-Evaluation/Progress Note: Pt rechecked. Blood work is normal. Plan to increase dosage of omeprazole. Pt understands and agrees with plan. F/U and RTER warnings given. All questions addressed. Counseled Regarding: Diagnosis, Lab results, Need for follow-up, When/why to return to ED Discharge & Departure Impression: Primary Impression: GI bleed GI bleed type/associated pathology: melena Qualified Code: K92.1 - Melena Disposition: Home Discharge Condition All VS Reviewed: Yes Condition: Stable Additional Instructions: Thank you for entrusting us with your care today. Emergency Department evaluation included review, examination and labs. Laboratory work is reassuring in that blood count is stable compared with previous values. Vital signs are also good, even with standing. Increase your omeprazole to 40 mg 2x/ day. Follow up with your primary care physician in the next week. Call the GI clinic to make an appointment also. Do not hesitate to return to the Emergency Department for increasing output of dark stool or bright red blood rectally, chest pain or feeling faint. . I hope you feel better soon! Referrals: Sirisha Anaya MD (PCP) Yoandy Weldon MD Attestation Portion of this note were transcribed by Ellen Dang. I, , personally performed the history, physical exam, and medical decision-making: I reviewed and confirmed the accuracy for the information in the transcribed note. Signed by: jazmine Dumas, 04/14/17 1700 copies to: Sirisha Anaya MD; Yoandy Wledon MD, Donald L MD April 14, 2017 15:05 Ellen Dang April 14, 2017 15:11
[2017-04-14 15:29] VITALS: BP 188/56; PULSE 69; RESP 17; O2SAT 95
[2017-04-14 16:02] VITALS: BP 148/51; PULSE 66; RESP 12; O2SAT 92
[2017-04-14 17:09] VITALS: BP_SYST 174; BP_SYST 181; BP_DIAS 74; BP_DIAS 79
[2017-04-14] MEDS ORDERED: OMEP20TA86 PO (17:35)
[2017-04-14 17:56] VITALS: BP 169/85
[2017-05-10] MEDS ORDERED: ALEN70TA2 PO (11:13)
== END 2017-04-14 17:57 | disposition home or self-care (01) ==
LOC: SED 13:43
DX: K92.1 Melena (principal); I10 Essential (primary) hypertension; I51.9 Heart disease, unspecified; I48.0 Paroxysmal atrial fibrillation; I35.0 Nonrheumatic aortic (valve) stenosis; K21.9 Gastro-esophageal reflux disease without esophagitis; E78.5 Hyperlipidemia, unspecified; M54.9 Dorsalgia, unspecified; G89.29 Other chronic pain; F32.9 Major depressive disorder, single episode, unspecified; D64.9 Anemia, unspecified; Z87.19 Personal history of other diseases of the digestive system; Z87.01 Personal history of pneumonia (recurrent); Z87.891 Personal history of nicotine dependence; Z79.82 Long term (current) use of aspirin; Z88.8 Allergy status to other drugs, medicaments and biological substances; Z88.1 Allergy status to other antibiotic agents; Z88.0 Allergy status to penicillin

== ENCOUNTER 2017-05-11 13:00 | Day surgery (SDC) | payer MEDICARE ==
[~2017-05-11] VITALS: Ht 160 cm; Wt 68.0 kg
[~2017-05-11 13:00] MED LIST changes: +0.9% Sodium Chloride 1,000 ML IV PRN; +ALEN70TA2 PO; -ASCO-294 PO; -ASPI-973 PO; -CHOL100043 PO; -OMEP20CA11 PO; +OMEP20TA86 PO; +Sodium Chloride LOK Flush 10 mL Syringe IV PRN; +fentaNYL-PF 50 mCg/mL 2 mL Inj IVPUSH PRN
[2017-05-11] MEDS ORDERED: Propofol 10,000 mCg/mL 20 mL Inj ONE (13:01)
[2017-05-11] MEDS ORDERED: Ketamine 10 mg/mL 20 mL Inj ONE (13:01)
[2017-05-11] MEDS ORDERED: Lactated Ringer's 1,000 ML IV ONE (13:35)
[2017-05-11 13:40] VITALS: BP 156/60; PULSE 74; RESP 16; O2SAT 97
[2017-05-11] MEDS: Lactated Ringer's 1,000 ML IV ONE ×2 (14:00→14:44)
[2017-05-11 14:52] VITALS: BP 119/100; PULSE 72; RESP 16; O2SAT 98
[2017-05-11 15:13] VITALS: BP 147/58; PULSE 62; RESP 14; O2SAT 93
--- NOTE | 2017-05-11 15:20 | ENDO ---
[address] [address] ENDOSCOPY PROCEDURE PATIENT: NURA AMBRIZ : 1930 MR#: [id number] ADMIT: 05/11/2017 JOB ID: [id number] DATE OF SERVICE: 05/11/2017 TYPE OF OPERATION: 1. Esophagogastroduodenoscopy. 2. Colonoscopy with biopsy. PREOPERATIVE DIAGNOSIS(ES): Melena. POSTOPERATIVE DIAGNOSIS(ES): 1. Normal upper endoscopy. 2. Small internal hemorrhoids. 3. There were two polyps that were seen each measuring 2 mm in size, located in the transverse colon and hepatic flexure, status post biopsy. 4. Mild sigmoid diverticulosis. ANESTHESIA: Monitored anesthesia care. COMPLICATIONS: None. BLOOD LOSS: Minimal. DESCRIPTION OF PROCEDURE: After risks and benefits explained to the patient, informed consent was obtained. After anesthesia, upper endoscope was then inserted into the mouth, intubating into the esophagus, stomach, second portion of duodenum. Mucosa carefully examined. After procedure was done, the scope was withdrawn and the procedure terminated. Colonoscope was then inserted from the rectum to the terminal ileum. Mucosa carefully examined. Prep of the patient was excellent. After procedure was done, the scope was withdrawn and the procedure terminated. FINDINGS: Upon inspection of the esophagus, the esophagus was normal without masses, ulcers, or lesions. Z-line located 40 cm from incisors. Upon entering the stomach, the stomach was also normal without masses, ulcers, or lesions. Retroflexion was normal. Duodenal bulb, first and second portions were normal. Upon inspection of the anus, no masses, hemorrhoids, or ulcers are seen. Throughout the entire examination, there was moderate sigmoid diverticulosis in the sigmoid. There were also two polyps that were seen, 2 mm size each, one located at the hepatic flexure and the other located in the transverse colon, removed by cold biopsy forceps. Retroflexion showed small internal hemorrhoids. There was no blood that was seen in the terminal ileum. IMPRESSIONS: 1. Normal upper endoscopy. 2. Two polyps total that were removed. Each measured 2 mm in size. One in the transverse colon. One in the hepatic flexure. 3. Small internal hemorrhoids. 4. Mild sigmoid diverticulosis. RECOMMENDATIONS: 1. High-fiber diet. 2. Await pathology results. 3. Follow up in GI clinic as needed.
--- NOTE | 2017-05-11 20:04 | PCM.HPANE ---
Patient Data Date of Service: May 11, 2017 Surgeon Admitting Provider: Attending Provider:Yoandy Weldon MD Primary Care Physician:Sirisha Anaya MD Other Provider: Reason for Visit Melena Ht/WT & BMI Height (Feet): 5 Height (Inches): 3 Weight (Kilograms): 68.04 Body Mass Index 26.00 Allergies Coded Allergies: atenolol (Verified Allergy, Severe, BRADYCARDIA, MALAISE, 05/10/17) amoxicillin (Verified Allergy, Unknown, 05/10/17) clavulanic acid (Verified Allergy, Unknown, 05/10/17) nitrofurantoin (Verified Allergy, Unknown, nausea/vomiting, 05/10/17) Past Anesthesia History Anesthesia History: Denies:: Abnormal Airway, Anesthesia Reactions, Difficult Intubation, Fam Anesthesia Reaction, Fam Malignant Hypertherm, Malignant Hyperthermia Diabetes History Hx Diabetes?: No MRSA MRSA: No Medications Blood Thinner: Aspirin Last Dose Blood Thinner: May 10, 2017 Home Meds Incl Beta Ale: No Active Scripts Omeprazole 20 Mg Tablet.dr20 Mg PO BID #60 TABLET Ref 0 Prov:Bogdan Herbert MD 04/14/17 Reported Medications Ondansetron (Zofran)4 Mg Tablet4 Mg PO QID PRN For Nausea 07/07/16 Acetaminophen 500 Mg [id number] Mg PO Q6H PRN For Pain 07/07/16 Furosemide 20 Mg Tab10 Mg PO DAILY PRN edema 06/30/16 Wheat Dextrin (Benefiber)3 Gram/4 Gram Powd.pack2 Tsp PO DAILY 06/30/16 Amlodipine 5 Mg Tablet5 Mg PO DAILY 10/31/15 Nitroglycerin SL (Nitrostat)0.4 Mg Tab.subl0.4 Mg SL Q5MIN PRN chest pain 06/29/15 Lisinopril 10 Mg Snkdqs13 Mg PO DAILY PRN SBP>175 06/29/15 Hydrocodone-Acetaminophen 5-325 mg 1 Each Tablet0.5-1 Each PO q6 hr PRN For Pain 01/08/15 Alprazolam 0.25 Mg Tablet0.125-0.25 Mg PO TID PRN For Anxiety 01/08/15 Discontinued Reported Medications Alendronate Sodium (Fosamax)70 Mg Hbteev06 Mg PO WEEKLY 30 Days Ref 0 05/10/17 Omeprazole 20 Mg Capsule.dr Mg PO DAILY 07/07/16 Ascorbate Calcium (Vitamin C)500 Mg [id number] Mg PO DAILY 07/05/16 Cholecalciferol (Vitamin D3) (Vitamin D)1,000 Unit Tablet2,000 Unit PO DAILY 07/05/16 Aspirin 81 Mg [id number] Mg PO DAILY 10/31/15 History History of ENT Problems?: Yes HEENT History: Positive for:: Cataracts (bilateral removed) Dysphagia (INTERMITTENT) Denies:: Abnormal Airway Difficult Intubation Hearing Problem Sinus Problem Denture Type: None Teeth Condition: Within Normal Limits Hx of Heart Problems?: Yes Cardiovascular History: Positive for:: Atrial Fibrillation (HX) Chest Pain (HX ONLY) Congestive Heart Failure Edema Hypertension Irregular Heartbeat (Afib) Valvular Heart Disease (echo 2015- mild-mod aortic regurg) Denies:: AICD Cardiac Surgery Heart Murmur Pacemaker Thrombophlebitis Hx of Respiratory Problem?: Yes Respiratory History: Positive for:: Pneumonia (with sepsis) Denies:: Asthma COPD Chest Surgery Cough Dyspnea Emphysema Hemoptysis Tuberculosis Use of C-PAP Machine Hx Neurologic Problems?: Yes Neurological History: Positive for:: Dizziness (Vertigo) Denies:: Alzheimer's Disease CVA Dementia Headaches Parkinson's Disease Seizures Hx of GI Problems?: Yes Hx of Problems?: Yes Genitourinary History: Positive for:: Urinary Tract Infection Denies:: HX of Hemodialysis Kidney Stones HX of Peritoneal Dialysis: No Female Hx: Denies:: Currently Endometriosis Pelvic Inflammatory Problems with Breasts? Skin History: Denies:: History Skin Disorders? Pressure Ulcers Hx Musculoskeletal Problems?: Yes Musculoskeletal History: Positive for:: Back Injury Joint Replacement (Bilateral hips) Denies:: Fibromyalgia Musculoskeletal Trauma Hx of Psycho/Social Problems?: Yes Psycho Social History: Positive for:: Anxiety Hx Depression Denies:: Bipolar Disorder Suicide Attempt Hx Surgeries?: Yes (B hip replacements, cholecystectomy, B cataract surgery.) Hx Any Other Health Problems?: Yes Other History: Positive for:: Hospitalization Denies:: Cancer Endocrine Disease Thyroid Disease History Blood Transfusions: Denies:: Blood Transfuse Reaction Blood Transfusions Hx Diabetes: No Hx Alcohol Use: Yes ("a glass of wine daily")Hx Substance Use: No Smoking Status: Former Smoker Have You Smoked inLast 12 mo: No Stop/Bang Treated for Sleep Apnea?: No Do You Have a CPAP Machine?: No S-Snoring: Do You Snore Loudly: No T-Tired: feel tired, fatigued: No O-Obsered: Observed not breath: No P-Blood Pressure: treated: Yes B- Body Mass Index > 35 kg/m2: No A- Age over 50: Yes N- Neck Large Circumference: No G- Gender Male: No MILO Total Score: 2 MILO Risk Assessment: Low Risk, <3 Yes Risk Assessment Category Category 1A: Patient has history of documented sleep apnea, and HAS NOT received any narcotic, sedative or anesthesia administration during this stay. Category 1B: Patient has history of documented sleep apnea, and HAS received any narcotic , sedative or anesthesia administration during this stay Category 2: Patient has SUSPECTED Obstructive Sleep Apnea, and HAS received any narcotic , sedative or anesthesia administration during this stay. Category 3: Patient has SUSPECTED Obstructive Sleep Apnea and HAS NOT received narcotic, sedative or anesthesia administration during this stay. Category 4: Outpatient in Procedural Areas with known sleep apnea or who screen positive for High Risk via the STOP/BANG questionnaire. Exam Exam Vital Signs Vital Signs Date Time Temp Pulse Resp B/P Pulse Ox O2 Delivery O2 Flow Rate FiO2 05/11/17 15:13 62 14 147/58 93 Room Air 05/11/17 14:52 72 16 119/100 98 Room Air 05/11/17 13:40 74 16 156/60 97 Room Air General Appearance: Alert, Oriented X3, Cooperative, No Acute Distress HEENT/AIRWAY: MP 2 Lungs: Clear to Auscultation, Normal Air Movement Heart: Exam Unremarkable, Regular Rate/Rhythm, No Murmurs/Rubs/Gallops Meds/Labs/Diagnostics Admission Meds Current Medications Lactated Ringer's (Lr) 1,000 ml @ 10 mls/hr Q24H ONCE IV Last administered on 05/11/17t 14:44; Start 05/11/17 at 08:54; Stop 05/12/17 at 08:53 Plan Impression Patient chart reviewed, patient interviewed and anesthestic plan with risks, benefits, and alternatives discussed, and informed consent obtained. NPO per Anesth. Guidelines: Yes ASA Physical Status: ASA3 Severe Disease Anesthetic Plan: GA Bene/Risks/Altern/Consents: Yes HP Complete Prior to Induction: Yes Leon Corbett MD May 11, 2017 20:04
--- NOTE | 2017-05-11 20:06 | PCM.ANEP1 ---
Post Anesthesia PACU Phase 1 Assessment Vital Signs Vital Signs Date Time Temp Pulse Resp B/P Pulse Ox O2 Delivery O2 Flow Rate FiO2 05/11/17 15:13 62 14 147/58 93 Room Air 05/11/17 14:52 72 16 119/100 98 Room Air 05/11/17 13:40 74 16 156/60 97 Room Air Anesthetic Administered: GA Level of Alertness: Awake, talking Pain: No Nausea or Vomiting: No CV Function & Hydration Stable: Yes Airway Device: Oxygen Delivery: Room Air Lungs: Clear to Auscultation, Normal Air Movement PACU Phase 2 Assessment Complications: No Follow up Care: N/A Patient Instructions Provided: N/A Leon Corbett MD May 11, 2017 20:06
--- NOTE | 2017-05-14 14:39 | PATH ---
SURGICAL PATHOLOGY Attending Physician:Yoandy Weldon MD CASE STATUS: Signed Out PATIENT NAME: NURA AMBRIZ PID: [id number] : 1930 DATE COLLECTED:05/11/2017 00:00 SPECIMEN: 1: Colon, Polyp 2: Colon, Polyp CLINICAL HISTORY: MELENA, COLON POLYP 1). HEPATIC FLEXURE POLYP 2). TRANSVERSE COLON POLYP FINAL DIAGNOSIS: 1.HEPATIC FLEXURE POLYP: TUBULAR ADENOMA. 2.TRANSVERSE COLON POLYP: TUBULAR ADENOMA. ICD10 D12.6 GROSS DESCRIPTION: The specimens are received in formalin, labeled with the patient's name and sublabeled as the following: (1) hepatic flex polyp; (2) transverse colon polyp. (1) The specimen consists of multiple fragments of jarrett-white, glistening, rubbery, semi-translucent tissue (1.0 x 0.2 x 0.1 cm in aggregate). Section code: (1A) tissue. Specimen entirely submitted. (2) The specimen consists of multiple fragments of jarrett-white, glistening, rubbery, semi-translucent tissue (0.6 x 0.2 x 0.1 cm in aggregate). Section code: (2A) tissue. Specimen entirely submitted. ([id number]) MICRO DESCRIPTION: See diagnosis. ICD-9 CODES: CPT CODES: 1: 91805 2: 10811 Electronically Signed Out Jamil Barillas MD [facility] Pathology [facility] [address], [place] [address] Technical component performed at [facility], [facility] [address], [place], [address]
== END 2017-05-11 23:59 | disposition home or self-care (01) ==
LOC: END 13:00
PROVIDERS: ATTEND Internal Medicine Gastroenterology
DX: D12.3 Benign neoplasm of transverse colon (principal); K92.1 Melena; K64.8 Other hemorrhoids; Z87.891 Personal history of nicotine dependence
CPT/HCPCS: 43235; 45380; J7120

== ENCOUNTER 2017-05-17 19:33 | Emergency (ER) | payer MEDICARE ==
[~2017-05-17] VITALS: Ht 157.5 cm; Wt 68.0 kg
[~2017-05-17 19:33] MED LIST changes: -0.9% Sodium Chloride 1,000 ML IV PRN; -ALEN70TA2 PO; -Sodium Chloride LOK Flush 10 mL Syringe IV PRN; -fentaNYL-PF 50 mCg/mL 2 mL Inj IVPUSH PRN
[2017-05-17 19:39] VITALS: BP 154/82; PULSE 70; RESP 18; O2SAT 98
[2017-05-17 20:21] LABS: BASOPHILS % (AUTO) 0.7 % (0-3); EOSINOPHILS % (AUTO) 2.8 % (0-5); MONOCYTES % (AUTO) 9.1 % (4-12); Mean Corpuscular Hemoglobin 30.4 pg (27.0-35.0); Mean Corpuscular Volume 92.5 fL (81-100); NEUTROPHILS % (AUTO) 52.9 % (40-74); Platelet Count 219 bil/L (150-400)
[2017-05-17 20:56] LABS: TROPONIN T < 0.010 ug/L (0.0-0.011)
--- NOTE | 2017-05-17 21:08 | ED.REPORT ---
HPI-General Illness Date of Service May 17, 2017 ED Provider: Juan Carlos Aparicio MD Patient is an 87 year old female with a hx of HTN, CHF, and paroxysmal Afib who presents to the ED complaining of gradually worsening weakness and fatigue onset one week ago. She had a colonoscopy one week ago for tarry stools. Associated symptoms include mild dyspnea upon exertion. She denies fever, cough , chest pain, melena, dysuria, or any other symptoms. Nursing Notes Stated Complaint: SHORT OF BREATH Chief Complaint: General Complaint Nursing Notes Reviewed: Yes Allergies: Coded Allergies: atenolol (Verified Allergy, Severe, BRADYCARDIA, MALAISE, 05/10/17) amoxicillin (Verified Allergy, Unknown, 05/10/17) clavulanic acid (Verified Allergy, Unknown, 05/10/17) nitrofurantoin (Verified Allergy, Unknown, nausea/vomiting, 05/10/17) Scheduled Amlodipine (Amlodipine) 5 Mg Tablet 5 MG PO DAILY Cefuroxime Axetil (Cefuroxime) 500 Mg Tablet 500 MG PO BID Omeprazole (Omeprazole) 20 Mg Tablet.dr 20 MG PO BID Wheat Dextrin (Benefiber) 3 Gram/4 Gram Powd.pack 2 TSP PO DAILY Scheduled PRN Acetaminophen (Acetaminophen) 500 Mg Tablet 500 MG PO Q6H PRN PRN For Pain Alprazolam (Alprazolam) 0.25 Mg Tablet 0.125-0.25 MG PO TID PRN PRN For Anxiety Furosemide (Furosemide) 20 Mg Tab 10 MG PO DAILY PRN PRN edema Hydrocodone-Acetaminophen 5-325 mg (Hydrocodone-Acetaminophen 5-325 mg) 1 Each Tablet 0.5-1 EACH PO q6 hr PRN PRN For Pain Lisinopril (Lisinopril) 10 Mg Tablet 10 MG PO DAILY PRN PRN SBP>175 Nitroglycerin SL (Nitrostat) 0.4 Mg Tab.subl 0.4 MG SL Q5MIN PRN PRN chest pain Ondansetron (Zofran) 4 Mg Tablet 4 MG PO QID PRN PRN For Nausea General Time Seen by MD: 21:08 Chief Complaint Weakness Hx Obtained From: Patient Arrived By: Walk-in Onset Occurred: 1 week ago Symptom Duration: Since onset Severity: Current: No pain currently Severity: Maximum: No pain Recent Healthcare: Recent doctor visit Past Medical History Past Medical History Notes: Myocardial profusion scan NM 2/13/13: IMPRESSION: 1. Normal myocardial perfusion images. 2. Normal left ventricular volume and systolic function. 3. No chest pain or diagnostic EKG changes for ischemia. Dictated by: Liss Calixto M.D. on 01/01/2013 at 12:56 Approved by: Liss Calixto M.D. on 01/01/2013 at 12:56 Nuclear medicine scan 04/02/12: IMPRESSION: Depressed gallbladder ejection fraction at 4%. Etiologies can include gastroparesis or obstruction. Clinical correlation is recommended. Dictated by: Brenda Goldberg M.D. on 04/02/2012 at 16:26 Approved by: Brenda Goldberg M.D. on 04/02/2012 at 16:26 Past Medical History Osteoarthritis Chronic back pain, Anemia been on iron transfusions. hospitalized for pneumonia and sepsis in July 2014. labile HTN, community-acquired pneumonia, mild anemia due to IV fluids, chronic back pain on narcotics, urinary incontinence, vertigo, dyslipedemia, depression, A-fib (paroxysmal, not on anticoagulation), angina C. Diff. ho ureteral laceration following biopsy in 2015 Diverticulosis of colon bradycardia V tach PMC Aortic stenosis Diastolic dysfunction Valvular heart disease Reports: Congestive heart failure, GERD, Hyperlipidemia, Hypertension Reports: Atrial fibrillation Past Surgical History ureteral stent for ureteral injury in 2015 Reports: Cataract surgery, Cholecystectomy Reports: Hip replacement (Bilat ) Smoking History Former Smoker Social History Alcohol Use: 1-3 per day Drug Use: Denies drug use Other Social History: Lives alone, Local resident Ambulatory Status Independent Review of Systems Full Review of Systems Constitutional: Reports: Fatigue, Weakness - generalized, Denies: Fever Respiratory: Reports: Dyspnea on exertion, Denies: Non-productive cough Cardiovascular: Denies: Chest pain GI: Denies: Melena Female: Denies: Dysuria Complete sys rev & neg: except as marked. Physical Exam Vital Signs Vital Signs Date Time Temp Pulse Resp B/P Pulse Ox O2 Delivery O2 Flow Rate FiO2 05/17/17 23:19 36.3 58 16 151/60 96 Room Air 05/17/17 22:53 36.3 58 16 151/60 96 Room Air 05/17/17 19:39 36.7 70 18 154/82 98 Room Air Initial VS: Reviewed Head / Eyes: Atraumatic, Normocephalic Respiratory: Breath sounds normal, Clear to auscultation, No respiratory distress Abdomen / GI: Soft, Non-tender Skin: Warm, Dry Neurologic: Alert, Oriented, Nonfocal Psychiatric: Mood/affect normal, Behavior normal, Normal thought content General/Constitutional: Awake, Alert, Well developed Distress / Hydration: Positive: Dehydration mild Mouth: Positive: Mucous membranes dry Neck: Supple, Full range of motion, No JVD Cardiovascular: Heart rate NL (Slightly slow at 60 bpm), Regular rhythm, Heart sounds NL Lower Ext Edema: Positive: Bilateral 2+ (Chronic ) Abdomen: Soft, Non-tender Interpretation & Diagnostics Lab Results Interpretation Result Diagram: 05/17/17 2011 05/17/17 2011 Test 05/17/17 20:11 05/17/17 21:11 05/17/17 22:03 White Blood Count 5.4th/mm3 (3.8-10.1) Red Blood Count 3.35mil/mm3 (3.90-5.20) Hemoglobin 10.2g/dL (12.0-15.6) Hematocrit 31.0% (35.0-46.0) Mean Corpuscular Volume 92.5fL (81-100) Mean Corpuscular Hemoglobin 30.4pg (27.0-35.0) Mean Corpuscular Hemoglobin Concent 32.9% (32.0-37.0) Red Cell Distribution Width 14.7% (12.3-15.4) Platelet Count 219bil/L (150-400) Neutrophils (%) (Auto) 52.9% (40-74) Lymphocytes (%) (Auto) 34.5% (14-46) Monocytes (%) (Auto) 9.1% (4-12) Eosinophils (%) (Auto) 2.8% (0-5) Basophils (%) (Auto) 0.7% (0-3) Sodium Level 138mEq/L (134-144) Potassium Level 4.2mEq/L (3.5-5.2) Chloride Level 103mEq/L (97-108) Carbon Dioxide Level 23mmol/L (18-29) Blood Urea Nitrogen 20mg/dL (8-27) Creatinine 0.68mg/dL (0.57-1.00) Estimat Glomerular Filtration Rate 117mL/min (>59) Glucose Level 110mg/dL (60-99) Calcium Level 10.0mg/dL (8.5-10.1) Total Bilirubin 0.2mg/dL (0.0-1.2) Aspartate Amino Transf (AST/SGOT) 21U/L (0-50) Alanine Aminotransferase (ALT/SGPT) 12U/L (0-32) Alkaline Phosphatase 47U/L (25-165) Troponin T < 0.010ug/L (0.0-0.011) Total Protein 7.1g/dL (6.4-8.4) Albumin 3.9g/dL (3.4-5.0) Hold [place] Top Tube Received (Received) Pro-B-Type Natriuretic Peptide 378.8pg/mL (0-738) Thyroid Stimulating Hormone (TSH) 2.960uIU/mL (0.450-4.500) Free Thyroxine 1.03ng/dL (0.82-1.77) Urine Color Yellow (YELLOW) Urine Appearance Clear (CLEAR,HAZY) Urine pH 7.5 (5.0-8.0) Urine Specific Chaplin 1.015 (1.003-1.035) Urine Protein Negativemg/dL (NEG,TRACE) Urine Glucose (UA) Negativemg/dL (NEGATIVE) Urine Ketones Negativemg/dL (NEGATIVE) Urine Occult Blood Negative (NEGATIVE) Urine Nitrite Negative (NEGATIVE) Urine Bilirubin Negative (NEGATIVE) Urine Urobilinogen Normalmg/dL (NORMAL) Urine Leukocyte Esterase Small (NEGATIVE) Urine RBC 0-2/hpf (0-2) Urine WBC 6-10/hpf (0-5) Urine Epithelial Cells Occasional/hpf (NONE-MOD) Urine Crystals None seen (NONE SEEN) Urine Bacteria Few/hpf (NONE-FEW) Urine Hyaline Casts None/lpf (NONE) Urine Granular Casts None seen (NONE SEEN) Urine Waxy Casts None seen (NONE SEEN) Urine Red Blood Cell Casts None seen (NONE SEEN) Urine White Blood Cell Casts None seen (NONE SEEN) Urine Mucus None seen (None Seen) Urine Trichomonas None seen (NONE SEEN) Urine Yeast None (NONE SEEN) Urinalysis Comment None Urine Culture Reflexed Indicated ECG Interpretation ECG Interpretation: Sinus rate 60 No significant change from prior prolonged NV interval LVH anterior infarct, old Time: 21:42 Interpreted by: ED physician X-Ray Chest Interpretation Chest Xray Interpretation: No change from prior View: Portable, 1 view Interpretation / Wet Read by: Interpret - ED physician Re-Eval/Medical Decision Med Decision/Clinical Course 87-year-old female presents with fatigue that she is representing initially as of shortness of breath. Her urine is positive for UTI and her remainder of her labs are unremarkable. She is begun with oral Ceftin and is discharged in stable condition. Time of Eval: 22:56 Re-Evaluation/Progress Note: Discussed plan for discharge. Patient understands and agrees with plan. All questions addressed at this time. Counseled Regarding: Diagnosis, Lab results, Need for follow-up, When/why to return to ED Discharge & Departure Primary Impression: UTI (urinary tract infection) Urinary tract infection type: site unspecified Hematuria presence: without hematuria Qualified Code: N39.0 - Urinary tract infection, site not specified Additional Impression: Fatigue Fatigue type: unspecified Qualified Code: R53.83 - Other fatigue Disposition: Home Discharge Condition All VS Reviewed: Yes Condition: Stable Additional Instructions: Your fatigue may well be due to urinary tract infection. Begin Ceftin twice daily for seven days. Follow-up with your doctor in the office. Return if any immediate issues. Drink extra fluids to maintain your urine flow. Referrals: Sirisha Anaya MD (PCP) Scribe Attestation Portions of this note were transcribed by Gregoria Green. I, Dr. Aparicio personally performed the history, physical exam and medical decision-making; I reviewed and confirmed the accuracy of the information in the transcribed note. Signed by: Gregoria Green 05/17/2017, [id number] copies to: Sirisha Anaya MD, Christopher W MD May 17, 2017 21:08 GREGORIA GREEN May 17, 2017 21:18
[2017-05-17 22:24] LABS: APPEARANCE,URINE CLEAR (CLEAR,HAZY); COLOR,URINE YELLOW (YELLOW)
[2017-05-17 22:25] LABS: OCCULT BLOOD,URINE NEGATIVE (NEGATIVE); PH,URINE 7.5 (5.0-8.0); UROBILINOGEN,URINE NORMAL (NORMAL)
[2017-05-17] MEDS ORDERED: CEFU500T61 PO (22:51)
[2017-05-17 22:53] VITALS: BP 151/60; PULSE 58; RESP 16; O2SAT 96
[2017-05-17 23:19] VITALS: BP 151/60; PULSE 58; RESP 16; O2SAT 96
--- NOTE | 2017-05-18 08:33 | DRSVH ---
PROCEDURE: X-RAY CHEST ONE VIEW, PORTABLE ([id number]) INDICATIONS: sob, fatigue TECHNIQUE: One view of the chest was acquired. COMPARISON: [facility], CR, XR CHEST 1VW (PORTABLE), 04/03/2017, 13:45. FINDINGS: Surgical changes and devices: None. Lungs and pleura: No pleural effusions or pneumothorax. No acute consolidation. Widespread interstit ial changes and calcified granuloma in the right midlung are stable in appearance. Mediastinum: Mediastinal contours appear normal. Heart size is normal. There are calcified right hi lar lymph nodes as before Bones and chest wall: No suspicious bony lesions. Overlying soft tissues appear unremarkable. Late ral curvature of the spine. IMPRESSION: Overall, no interval change or acute consolidation. Dictated by: Adrien Cope M.D. on 05/18/2017 at 8:30 Approved by: Adrien Cope M.D. on 05/18/2017 at 8:31
== END 2017-05-17 23:04 | disposition home or self-care (01) ==
LOC: SED 19:33
DX: N39.0 Urinary tract infection, site not specified (principal); R53.83 Other fatigue; R06.00 Dyspnea, unspecified; R06.02 Shortness of breath; I11.0 Hypertensive heart disease with heart failure; I50.9 Heart failure, unspecified; I48.91 Unspecified atrial fibrillation; K21.9 Gastro-esophageal reflux disease without esophagitis; E78.5 Hyperlipidemia, unspecified; F32.9 Major depressive disorder, single episode, unspecified; Z87.891 Personal history of nicotine dependence; Z96.0 Presence of urogenital implants; Z88.1 Allergy status to other antibiotic agents; Z88.8 Allergy status to other drugs, medicaments and biological substances

== ENCOUNTER 2017-08-07 19:45 | Observation (INO) | payer MEDICARE ==
[~2017-08-07] VITALS: Ht 162.6 cm; Wt 63.0 kg
[~2017-08-07 19:45] MED LIST changes: +CEFU500T61 PO
[2017-08-07 19:58] VITALS: BP 157/54; PULSE 63; RESP 20; O2SAT 98
--- NOTE | 2017-08-07 20:31 | DRSVH ---
PROCEDURE: X-RAY CHEST, TWO VIEWS ([id number]) INDICATIONS: fall, pain to right lateral chest wall TECHNIQUE: 2 views of the chest were acquired. COMPARISON: [facility], CR, XR CHEST 2VW, 10/26/2015, 12:56. [facility], C R, CHEST 2VW, 06/26/2014, 8:07. [facility], CR, CHEST 2VW, 12/31/2012, 8:07. [facility], CR, CHEST 2VW, 03/06/2012, 12:43. FINDINGS: Surgical changes and devices: Upper abdominal surgical clips. Lungs and pleura: No pleural effusions or pneumothorax. Stable bibasilar interstitial pulmonary opac ities. Benign calcified granulomas. Mediastinum: Mediastinal contours are normal. Heart size is normal. Bones and chest wall: No suspicious bony abnormalities. Soft tissues appear unremarkable. IMPRESSION: Stable bibasilar pulmonary opacities most consistent with fibrosis or scarring. No acute pulmonary opacities. Dictated by: Juan Carlos Bermeo M.D. on 08/07/2017 at 20:28 Approved by: Juan Carlos Bermeo M.D. on 08/07/2017 at 20:30
--- NOTE | 2017-08-07 20:32 | ED.REPORT ---
HPI-Trauma Minor / Fall Date of Service Aug 07, 2017 ED Provider: Gutierrez Pradhan DO Pt is a 87 y/o female with a history of arthritis, osteoporosis, hypertension, and CHF who presents to the ED via EMS c/o progressively worsening right-sided rib pain pain s/p falling onset at noon today. She states that she fell on her right side while trying to get up and hit her rib on a chair. She states that she did not hit her head during the fall. Additional symptoms include right- sided back pain, SOB when sitting, and weakness. She denies fever, chills, or LOC. Nursing Notes Stated Complaint: RIGHT FLANK AND BACK PAIN Chief Complaint: Multiple Trauma/Fall Nursing Notes Reviewed: Yes Allergies: Coded Allergies: Penicillins (Verified Allergy, Severe, Anaphylaxis, 08/08/17) Sulfa (Sulfonamide Antibiotics) (Verified Allergy, Unknown, 08/07/17) Uncoded Allergies: Beta Blockers (Adverse Reaction, Intermediate, 08/08/17) Hypotension, bradycardia Scheduled Amlodipine (Amlodipine) 5 Mg Tablet 5 MG PO HS Aspirin (Aspirin) 81 Mg Tablet 81 MG PO MORNING Omeprazole (Omeprazole) 40 Mg Capsule.dr 40 MG PO BID Wheat Dextrin (Benefiber) 3 Gram/4 Gram Powd.pack 2 TSP PO DAILY Scheduled PRN Acetaminophen (Acetaminophen) 500 Mg Tablet 500 MG PO Q6H PRN PRN For Pain Alprazolam (Alprazolam) 0.25 Mg Tablet 0.125-0.25 MG PO TID PRN PRN For HYPERtension Bismuth Subsalicylate (Pepto-Bismol) 262 Mg Tab.chew 262 MG PO PRN PRN PRN na Furosemide (Furosemide) 20 Mg Tab 10 MG PO DAILY PRN PRN edema Hydrocodone-Acetaminophen 5-325 mg (Hydrocodone-Acetaminophen 5-325 mg) 1 Each Tablet 0.5-1 EACH PO q6 hr PRN PRN For Pain Lisinopril (Lisinopril) 10 Mg Tablet 10 MG PO BID PRN PRN SBP>175 Nitroglycerin SL (Nitrostat) 0.4 Mg Tab.subl 0.4 MG SL Q5MIN PRN PRN chest pain General Time Seen by MD: 20:31 Chief Complaint Fall Hx Obtained From: Patient Arrived By: Ambulance Onset Occurred: 5 - 8 hours ago Symptom Duration: Constant Caused by: Fall on ground Quality: Painful Severity: Current: Mild Severity: Maximum: Moderate Recent Healthcare: Recent doctor visit Similar Sx Previous: No Past Medical History Past Medical History Notes: Myocardial profusion scan NM 01/01/13: IMPRESSION: 1. Normal myocardial perfusion images. 2. Normal left ventricular volume and systolic function. 3. No chest pain or diagnostic EKG changes for ischemia. Dictated by: Liss Calixto M.D. on 01/01/2013 at 12:56 Approved by: Liss Calixto M.D. on 01/01/2013 at 12:56 Nuclear medicine scan 04/02/12: IMPRESSION: Depressed gallbladder ejection fraction at 4%. Etiologies can include gastroparesis or obstruction. Clinical correlation is recommended. Dictated by: Brenda Goldberg M.D. on 04/02/2012 at 16:26 Approved by: Brenda Goldberg M.D. on 04/02/2012 at 16:26 Past Medical History Osteoarthritis Chronic back pain, Anemia been on iron transfusions. hospitalized for pneumonia and sepsis in July 2014. labile HTN, community-acquired pneumonia, mild anemia due to IV fluids, chronic back pain on narcotics, urinary incontinence, vertigo, dyslipedemia, depression, A-fib (paroxysmal, not on anticoagulation), angina C. Diff. 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 Physical Exam Initial Vital Signs Vital Signs (First) Date Time Temp Pulse Resp B/P Pulse Ox O2 Delivery O2 Flow Rate FiO2 08/07/17 19:58 36.6 63 20 157/54 98 Room Air Initial VS: Reviewed Head / Eyes: Atraumatic, Normocephalic Abdomen / GI: Soft, Non-tender Skin: Warm, Dry, No cyanosis Neurologic: Alert, Oriented, Nonfocal Psychiatric: Mood/affect normal, Behavior normal, Normal thought content General/Constitutional: Awake, Alert Neck: Supple, Full range of motion Respiratory / Chest: Atraumatic, Breath sounds NL, Breath sounds = bilat, No respiratory distress Cardiovascular: Heart rate NL, Regular rhythm, Heart sounds NL Skin: Warm, Dry Large bruise over right flank and rib cage Interpretation & Diagnostics Lab Results Interpretation Result Diagram: 08/08/17 0650 08/08/17 0650 Test 08/07/17 20:00 08/07/17 23:26 08/07/17 23:34 Hold Purple Top Tube Received (Received) Hold Blue Top Tube Received (Received) Hold [place] Top Tube Received (Received) Urine Color Yellow (YELLOW) Urine Appearance Clear (CLEAR,HAZY) Urine pH 7.0 (5.0-8.0) Urine Specific [place] 1.010 (1.003-1.035) Urine Protein Negativemg/dL (NEG,TRACE) Urine Glucose (UA) Negativemg/dL (NEGATIVE) Urine Ketones Negativemg/dL (NEGATIVE) Urine Occult Blood Negative (NEGATIVE) Urine Nitrite Negative (NEGATIVE) Urine Bilirubin Negative (NEGATIVE) Urine Urobilinogen Normalmg/dL (NORMAL) Urine Leukocyte Esterase Negative (NEGATIVE) Urine RBC 0-2/hpf (0-2) Urine WBC 0-5/hpf (0-5) Urine Epithelial Cells Few/hpf (NONE-MOD) Urine Crystals None seen (NONE SEEN) Urine Bacteria Few/hpf (NONE-FEW) Urine Hyaline Casts None/lpf (NONE) Urine Granular Casts None seen (NONE SEEN) Urine Waxy Casts None seen (NONE SEEN) Urine Red Blood Cell Casts None seen (NONE SEEN) Urine White Blood Cell Casts None seen (NONE SEEN) Urine Mucus None seen (None Seen) Urine Trichomonas None seen (NONE SEEN) Urine Yeast None (NONE SEEN) Urinalysis Comment None Urine Culture Reflexed Not indicated Hold Urine Received (Received) X-Ray Chest Interpretation Chest Xray Interpretation: IMPRESSION: Stable bibasilar pulmonary opacities most consistent with fibrosis or scarring. No acute pulmonary opacities. Dictated by: Juan Carlos Bermeo M.D. on 08/07/2017 at 20:28 Approved by: Juan Carlos Bermeo M.D. on 08/07/2017 at 20:30 View: AP & lat Interpretation / Wet Read by: Interpret - Radiologist CT Chest Interpretation Impression: 1. Minimally displaced right posterior 10th rib fracture with secondary 5 to 10% right anterior pneumothorax. 2. Ecstasia of the ascending thoracic aorta. Sequela of prior granulomatous disease. Study type: Chest CT w contrast Interpretation / Wet Read by: Interpret - Radiologist Re-Eval/Medical Decision Med Decision/Clinical Course 87-year-old female who lives at home by herself presents after she fell and hurt her ribs. Initial x-ray did not show abnormalities, however given my clinical index of suspicion for rib fractures identified a CT that showed a 10- 15% pneumothorax as well as right 10th rib fracture. Given the new diagnosis of pneumothorax she will be admitted up to observation to monitor the size of her pneumothorax and to also help find a reasonable pain control regimen for her. She does have pain medications at home. Patient understands and agrees with this plan. Source of Hx: Old records Re-Evaluation/Progress : Time of Eval: 22:48 Re-Evaluation/Progress Note: Pt rechecked. Discussed plan for admission. Pt understands and agrees with plan. All questions addressed. Consultation : Referral / Consult Name: Brianda Marin DO Consulted With: Hospitalist Call Returned at: 23:19 Panel Edge Painter: Will see patient, Agrees with plan, Accepts admit Note: Discussed pt's case with hospitalist, Dr. Marin. She wants lab work done. Counseled Regarding: Diagnosis, Lab results, Need for admission Discharge & Departure Impression: Primary Impression: Pneumothorax Additional Impression: Rib fracture Disposition: ADMITTED TO HOSPITAL Discharge Condition All VS Reviewed: Yes Condition: Stable Referrals: Sirisha Anaya MD (PCP) Scribe Attestation Portions of this note were transcribed by Liza Campos. I, Dr. Pradhan, personally performed the history, physical exam and medical decision-making; I reviewed and confirmed the accuracy of the information in the transcribed note. copies to: Sirisha Anaya MD, Gary R DO Aug 07, 2017 20:32 Liza Campos Aug 07, 2017 21:43
[2017-08-07 22:16] VITALS: BP 180/60; PULSE 65; RESP 18; O2SAT 97
[2017-08-07 23:28] LABS: BASOPHILS % (AUTO) 0.3 % (0-3); EOSINOPHILS % (AUTO) 0.5 % (0-5); MONOCYTES % (AUTO) 6.2 % (4-12); Mean Corpuscular Hemoglobin 30.3 pg (27.0-35.0); Mean Corpuscular Volume 92.9 fL (81-100); NEUTROPHILS % (AUTO) 79.3 % (40-74); Platelet Count 230 bil/L (150-400)
[2017-08-07 23:32] VITALS: BP 149/48; PULSE 62; RESP 18; O2SAT 97
[2017-08-07] MEDS ORDERED: Polyethylene Glycol (PEG) 17 Gm Powder PO PRN (23:50)
[2017-08-07] MEDS ORDERED: Ondansetron 2 mg/mL 2 mL Inj IVPUSH PRN (23:50)
[2017-08-07] MEDS ORDERED: Alum-Mag Hydrox-Simeth 30 mL Suspension PO PRN (23:50)
[2017-08-07] MEDS ORDERED: HYDROcodone-APAP 5-325 mg Tablet PO ONE (23:55)
--- NOTE | 2017-08-08 00:10 | PCM.HPMED ---
Subjective Date of Service Aug 08, 2017 Primary Provider: Admitting Physician: Brianda Marin DO Primary Care Physician: Sirisha Anaya MD Attending Physician: Brianda Marin DO Chief Complaint: Shortness of breath and rib pain after fall History of Present Illness: Sumaya Brewer is an 87-year-old female with past medical history significant for hypertension, dyslipidemia, atrial fibrillation, angina, and urinary incontinence who presents to the emergency department due to shortness of breath and rib pain after sustaining a fall earlier this morning. Patient tripped and fell on a nearby desk hitting her right side. Due to the significant pain patient was unable to walk. Pain did not subside over the next few hours and as the patient lives alone she decided to present to the ED. She denies hitting her head during the fall or any loss of consciousness. Denies shortness of breath only shallow breaths due to pain on her right side. She denies prior falls. No recent fever, chills, night sweats, nausea, vomiting , dysuria, hematuria, or change in bowel habits. On presentation to the ED patient's vitals were temperature 36.6, pulse 63, respiratory rate 20 satting 98% on room air, and blood pressure 157/54. Initial labs were largely unremarkable although she did have a white blood cell count of 11.1 with a neutrophil predominance of 79.3. UA with no sign of infection. In the ED chest x-ray was obtained which showed no acute process. Due to the patient's symptoms a CT was obtained showing a small right pneumothorax. Due to the size and lack of symptoms chest tube was not required. Review of Systems: Comprehensive review of systems was conducted with the patient and found to be negative except as noted above in HPI. Allergies Coded Allergies: Penicillins (Verified Allergy, Severe, Anaphylaxis, 08/08/17) Sulfa (Sulfonamide Antibiotics) (Verified Allergy, Unknown, 08/07/17) Uncoded Allergies: Beta Blockers (Adverse Reaction, Intermediate, 08/08/17) Hypotension, bradycardia Home Medications Sumaya Brewer. [id number] 06/20/2017 08:15 AM 1/6 04/20/2016 acetaminophen 500 mg tablet take 1 - 2 tablet by oral route every 6 hours as needed up to 4 tablets per day 02/19/2017 alprazolam 0.25 mg tablet take 0.5 - 1 tablet (0.125MG) by ORAL route 3 times every day as needed for palpitiations 11/07/2016 amlodipine 5 mg tablet take 1 tablet by oral route every evening may take second tablet in morning if blood pressure over 160 10/15/2015 Benefiber Clear Sugar Free(dextrin) 3 gram/3.5 gram oral powder packet 1-2 teaspons daily 02/28/2017 furosemide 20 mg tablet TAKE 0.5 TABLET BY ORAL ROUTE EVERY DAY NEEDED FOR LEG SWELLING 02/28/2017 hydrocodone 5 mg-acetaminophen 325 mg tablet take 1 tablet by oral route every 6 hours as needed for pain 11/02/2017 11/07/2016 lisinopril 10 mg tablet take 1 tablet by oral route 2 times every day may increase by 10mg each half day to keep BP under 160 09/21/2016 Miralax 17 gram/dose oral powder take (17G) by oral route every day mixed with 8 oz. water, juice, soda, coffee or tea, as needed for constipation 04/20/2016 Nitrostat 0.[address] 1 tablet by sublingual route at 1st sign of attack; may repeat every 5 minutes up to 3 tabs; if norelief seek medical help 04/18/2017 omeprazole 20 mg capsule,delayed release take 2 capsule by oral route 2 times every day before a meal as needed for acid reflux 06/20/2017 sulfamethoxazole 800 mg-trimethoprim 160 mg tablet take 1 tablet by oral route every 12 hours 04/18/2017 Suprep Bowel Prep Kit 17.5 gram-3.13 gram-1.6 gram oral solution use as directed for colonoscopy 06/21/2016 urea 40 % topical cream apply by topical route 2 times every day to the affected area(s) 07/27/2015 Zofran 4 mg tablet TAKE 1 - 2 TABLET BY ORAL ROUTE EVERY 6 HOURS NEEDED FOR NAUSEA PMH Osteoarthritis Hypertension Diverticulosis Dyslipidemia Osteopenia Urinary frequency Anxiety Surgical History Pilonidal cyst removal Bilateral hip and knee replacements Tonsillectomy Bilateral cataract extraction Cholecystectomy Family History Father - prostate cancer Mother - hypertension, heart failure Brother - [place] Sister - Crohn's disease Social History Hx Alcohol Use: Yes ("a glass of wine daily") Hx Substance Use: No Hx Tobacco Use: Yes Smoking Status: Former Smoker Living Arrangement: Alone Exam Vital Signs Vital Sign - Last Date Time Temp Pulse Resp B/P Pulse Ox O2 Delivery O2 Flow Rate FiO2 08/07/17 23:32 36.3 62 18 149/48 97 Room Air Intake and Output 08/07/17 08/07/17 08/08/17 Cumulative From/Thru 15:00 23:00 07:00 08/07/17 19:58 - 08/07/17 20:15 Output Total 200 ml 200 ml Balance -200 ml -200 ml Output Urine Total 200 ml 200 ml # Voids 1 1 Exam General: Frail elderly woman in mild distress. HEENT: Normocephalic, atraumatic. External ears without defect. Pupils equal, round, and reactive to light and accommodation. Moist oral mucosa. Neck: Supple with full range of motion. Cardiovascular: Regular rate and rhythm with 2/6 systolic murmur. Pulmonary: Clear to auscultation bilaterally with no crackles, wheezes, or rhonchi. Shallow breaths. Normal respiratory effort with no use of accessory muscles. Chest: Tenderness to palpation over the right lateral chest wall. Abdomen: Bowel tones present. Soft, nontender, nondistended. No hepatosplenomegaly or masses appreciated. Extremities: No clubbing, cyanosis, edema, or lymphadenopathy appreciated. Skin: Ecchymosis over the right flank and rib cage. Neurological: Cranial nerves grossly intact. Normal muscle strength, tone, and bulk. Psychiatric: Normal mood and affect. Alert and oriented to person, place, and time. Lab and Diagnostics Result Diagram: 08/07/17199908/07/171999 X-Rays, CTs and MRIs X-RAY CHEST, TWO VIEWS ([id number]) IMPRESSION: Stable bibasilar pulmonary opacities most consistent with fibrosis or scarring. No acute pulmonary opacities. Dictated by: Juan Carlos Bermeo M.D. on 08/07/2017 at 20:28 Approved by: Juan Carlos Bermeo M.D. on 08/07/2017 at 20:30 CT chest [facility] read Small pneumothorax Cardiac Echo Impressions Echocardiogram Report Name: SUMAYA BREWER Study Date: 01/08/2015 Interpretation Summary Left ventricular systolic function is borderline reduced with the ejection fraction estimated to be 50-55% with borderline global hypokinesis and a mild dyssynchronous contraction pattern, consistent with a conduction abnormality, but no focal wall motion abnormalities. Left ventricular systolic function appears slightly less dynamic compared to the previous study. Left ventricular size is at the upper limits of normal and measures slightly larger compared to the previous study. Assessment of diastolic parameters suggests a pseudonormalization pattern, consistent with elevated filling pressures, and likely higher compared to the previous study. The right ventricle is normal in size and function and appears unchanged compared to the previous study. The right ventricular systolic pressure is estimated at 29 mmHg assuming a right atrial pressure of 3 mm Hg, and is unchanged compared to the previous study. There is severe biatrial enlargement. Both atria have significantly increased in size since the prior echo exam. There is mild-moderate mitral regurgitation, mild-moderate tricuspid regurgitation, and mild-moderate aortic regurgitation. All appear more prominent compared to the previous study. There is mild aortic stenosis that is unchanged compared to the previous study. The ascending aorta and aortic arch are mildly enlarged. Both measure slightly larger compared to the previous study. The patient was in normal sinus rhythm with frequent PVCs during the exam. Reading Physician:PM Assessment & Plan Sumaya Brewer is an 87-year-old female with past medical history significant for hypertension, dyslipidemia, atrial fibrillation, angina, and urinary incontinence who presents to the emergency department due to shortness of breath and rib pain after sustaining a fall earlier this morning. Pneumothorax, present admission, active. - Etiology likely secondary to ground-level fall. - Pneumothorax seen on CT but not chest x-ray. - Due to the patient's lack of symptoms and size of the pneumothorax chest tube was not indicated. - We will continue to monitor for symptoms indicating a possible increase in size of her pneumothorax. - Repeat chest x-ray in the morning. Ground-level fall, present on admission, active. - Patient sustained injuries to her right chest wall causing her significant amount of pain. Patient lives alone and was unable to take care of herself secondary to the pain. - Patient ambulates well at baseline although she does have significant osteoarthritis. - If pain is controlled day team should consider physical therapy consult. - Patient requested Tylenol for her pain. We will make this available along with [place] as this is a home medication for her although she typically uses it only once a week. Chronic stable conditions Hypertension - Continue home medications - lisinopril 10 mg nightly and amlodipine 5 mg GERD - Continue home medications - pantoprazole 20 mg twice a day Anxiety - Continue home medication - alprazolam 0.125 mg 3 times a day when necessary. PRN Medications - Acetaminophen as needed for mild pain/fever/headache - Bowel regimen as needed - Antiemetic as needed Patient is admitted under observation status with expected length of stay less than 2 midnights due to severity of presenting symptoms, risk of adverse event, and complexity of treatment plan. Pain Evaluation: Adequate Pain Control GI Prophylaxis: Proton Pump Inhibitor VTE Prophylaxis: Sub-Q Heparin (Unfractionated), SCDs Resuscitation Status: CPR: Attempt Resuscitation Attending Statement The patient was seen and examined together with house staff on 08/08/2017 and I agree with the history, exam and plan as outlined in the note above. CECELIA VÁZQUEZ DO Aug 08, 2017 00:10 Brianda Marin DO Aug 08, 2017 05:15
[2017-08-08 00:20] LABS: APPEARANCE,URINE CLEAR (CLEAR,HAZY); COLOR,URINE YELLOW (YELLOW); OCCULT BLOOD,URINE NEGATIVE (NEGATIVE); UROBILINOGEN,URINE NORMAL (NORMAL)
--- NOTE | 2017-08-08 00:28 | NUR ---
Report received from Courtney Roberts in ED.
[2017-08-08 00:34] VITALS: BP 172/59; PULSE 68; RESP 20; O2SAT 97
--- NOTE | 2017-08-08 00:54 | NUR ---
ADMIT Pt arrived on unit at 0040 via gurney. With 1PA assistance with FWW, pt transferred to BR then bed, slow moving r/t arthritic pain per pt. Continuing care.
[2017-08-08 01:00] VITALS: BP 170/71; PULSE 58; PULSE 63; RESP 16; O2SAT 98
[2017-08-08] MEDS ORDERED: HYDROcodone-APAP 5-325 mg Tablet PO PRN (01:00)
[2017-08-08] MEDS ORDERED: ASPI-973 PO (01:03)
[2017-08-08] MEDS ORDERED: OMEP40CA36 PO (01:04)
[2017-08-08] MEDS ORDERED: BISM262T15 PO (01:17)
[2017-08-08] MEDS ORDERED: ALPRAZolam 0.25 mg Tablet PO PRN (01:35)
[2017-08-08] MEDS: Heparin 5,000 Unit/mL Inj SUBQ SCH ×2 (02:00→08:35)
[2017-08-08 05:18] VITALS: BP 166/65; PULSE 64; RESP 16; O2SAT 97
[2017-08-08 07:24] LABS: BASOPHILS % (AUTO) 0.3 % (0-3); EOSINOPHILS % (AUTO) 2.3 % (0-5); MONOCYTES % (AUTO) 11.5 % (4-12); Mean Corpuscular Hemoglobin 30.2 pg (27.0-35.0); Mean Corpuscular Volume 92.4 fL (81-100); NEUTROPHILS % (AUTO) 57.8 % (40-74); Platelet Count 191 bil/L (150-400)
[2017-08-08] MEDS ORDERED: Pantoprazole 20 mg ER24 Tablet PO SCH (07:30)
--- NOTE | 2017-08-08 07:59 | DRSVH ---
PROCEDURE: CT CHEST WITHOUT CONTRAST ([id number]) INDICATIONS: r chest wall pain after trauma TECHNIQUE: Noncontrast 5 mm thick sections acquired from the pulmonary apices to the posterior costophrenic angl es. 7 mm thick coronal and sagittal MIP reformats were then acquired. For radiation dose reduction, the following was used: automated exposure control, adjustment of mA and/or kV according to patient size. COMPARISON: None. FINDINGS: Image quality: Excellent. Lungs and pleura: Posterolateral right middle lobe contusion.. No pleural effusions. Very small righ t apical pneumothorax. Central and peripheral airways are patent and normal in caliber. Calcified g ranulomas Mediastinum: Heart size is normal. No pericardial effusion. No mediastinal adenopathy by size crit eria. Thoracic aorta is mildly ectatic. The central pulmonary arteries are normal in size. Esophagu s is normal in caliber. No hiatal hernia. Bones and chest wall: Nondisplaced posterior right 10th rib fracture. No suspicious bony lesions. No vertebral body compression fractures. No axillary or supraclavicular adenopathy by size criteria. Thyroid gland is present. Abdomen: Visualized upper abdominal solid organs and bowel loops appear normal in the absence of con trast. IMPRESSION: 1. Nondisplaced posterior right 10th rib fracture with very small right apical pneumothorax. 2. There are no discrepancies with the preliminary report. Dictated by: Juan Carlos Bermeo M.D. on 08/08/2017 at 7:51 Approved by: Juan Carlos Bermeo M.D. on 08/08/2017 at 7:57
--- NOTE | 2017-08-08 09:03 | DRSVH ---
PROCEDURE: X-RAY CHEST ONE VIEW, PORTABLE ([id number]) INDICATIONS: pneumothorax TECHNIQUE: One view of the chest was acquired. COMPARISON: [facility], CT, CT CHEST WO CON, 08/07/2017, 21:53. [facility], CR, XR CHEST 2VW, 08/07/2017, 20:19. FINDINGS: Surgical changes and devices: None. Lungs and pleura: There is a small right apical pneumothorax. This is similar in size to the prior c hest radiograph. No left-sided pneumothorax is seen. Calcified granulomas can be seen. Mediastinum: Mediastinal contours appear normal. Heart size is normal. Age-appropriate calcificati on of the aortic arch is noted. Bones and chest wall: Age-appropriate bony degenerative changes are seen. No suspicious bony lesion s. Overlying soft tissues appear unremarkable. IMPRESSION: Small right apical pneumothorax, stable from prior. Dictated by: Rivera Rangel M.D. on 08/08/2017 at 8:57 Approved by: Rivera Rangel M.D. on 08/08/2017 at 9:01
[2017-08-08 09:48] VITALS: BP 146/66; PULSE 64; RESP 18; O2SAT 94
[2017-08-08 10:28] VITALS: PULSE 67
--- NOTE | 2017-08-08 12:12 | NUR ---
Bladder scan Patient has been voiding frequently. Patient bladder scanned post void residual was 134mL. MD notified.
--- NOTE | 2017-08-08 12:18 | PCM.DIMED ---
Discharge Instructions Date of Service Aug 08, 2017 Dates of Hospitalization Aug 07, 2017 at 23:49 Discharge Diagnosis Discharge Diagnosis Rib fracture and small pneumothorax Diet Discharge Diet: No restrictions Activity Discharge Activity: Home Health Phyical Therapy Patient Instructions Patient Instructions In addition to checking your lungs have your doctor recheck your anemia and decide if anything further needs to be done. Follow-up with PCP in: 1 week Maile Escalante MD Aug 08, 2017 12:18
--- NOTE | 2017-08-08 12:28 | PCM.DC.MED ---
Discharge Summary Date of Service Aug 08, 2017 Dates of Hospitalization Date of Hospital Admission Aug 07, 2017 at 23:49 Date of Discharge: Aug 08, 2017 Providers: Admitting Physician: Briadna Marin DO Primary Care Physician: Sirisha Anaya MD Attending Physician: Maile Escalante MD Diagnosis at Time of Discharge Diagnosis at Time of Discharge Rib fracture and small pneumothorax Procedures XRay, CTs & MRIs X-RAY CHEST, TWO VIEWS ([id number]) IMPRESSION: Stable bibasilar pulmonary opacities most consistent with fibrosis or scarring. No acute pulmonary opacities. Dictated by: Juan Carlos Bermeo M.D. on 08/07/2017 at 20:28 Approved by: Juan Carlos Bermeo M.D. on 08/07/2017 at 20:30 CT chest [place] read Small pneumothorax Cardiac Echo Impression Echocardiogram Report Name: SUMAYA DOMINGUEZ Study Date: 01/08/2015 Interpretation Summary Left ventricular systolic function is borderline reduced with the ejection fraction estimated to be 50-55% with borderline global hypokinesis and a mild dyssynchronous contraction pattern, consistent with a conduction abnormality, but no focal wall motion abnormalities. Left ventricular systolic function appears slightly less dynamic compared to the previous study. Left ventricular size is at the upper limits of normal and measures slightly larger compared to the previous study. Assessment of diastolic parameters suggests a pseudonormalization pattern, consistent with elevated filling pressures, and likely higher compared to the previous study. The right ventricle is normal in size and function and appears unchanged compared to the previous study. The right ventricular systolic pressure is estimated at 29 mmHg assuming a right atrial pressure of 3 mm Hg, and is unchanged compared to the previous study. There is severe biatrial enlargement. Both atria have significantly increased in size since the prior echo exam. There is mild-moderate mitral regurgitation, mild-moderate tricuspid regurgitation, and mild-moderate aortic regurgitation. All appear more prominent compared to the previous study. There is mild aortic stenosis that is unchanged compared to the previous study. The ascending aorta and aortic arch are mildly enlarged. Both measure slightly larger compared to the previous study. The patient was in normal sinus rhythm with frequent PVCs during the exam. Reading Physician:PM Brief History Sumaya Dominguez is an 87-year-old female with past medical history significant for hypertension, dyslipidemia, atrial fibrillation, angina, and urinary incontinence who presents to the emergency department due to shortness of breath and rib pain after sustaining a fall earlier this morning. Patient tripped and fell on a nearby desk hitting her right side. Due to the significant pain patient was unable to walk. Pain did not subside over the next few hours and as the patient lives alone she decided to present to the ED. She denies hitting her head during the fall or any loss of consciousness. Denies shortness of breath only shallow breaths due to pain on her right side. She denies prior falls. No recent fever, chills, night sweats, nausea, vomiting , dysuria, hematuria, or change in bowel habits. On presentation to the ED patient's vitals were temperature 36.6, pulse 63, respiratory rate 20 satting 98% on room air, and blood pressure 157/54. Initial labs were largely unremarkable although she did have a white blood cell count of 11.1 with a neutrophil predominance of 79.3. UA with no sign of infection. In the ED chest x-ray was obtained which showed no acute process. Due to the patient's symptoms a CT was obtained showing a small right pneumothorax. Due to the size and lack of symptoms chest tube was not required. Hospital Course Pneumothorax, present admission, active. - Etiology likely secondary to ground-level fall with rib fracture - Pneumothorax seen on CT but not reported in initial chest x-ray report. - Due to the patient's lack of symptoms and size of the pneumothorax chest tube was not indicated. - monitored for symptoms indicating a possible increase in size of her pneumothorax. - Repeat chest x-ray in the morning shows stable small pneumothorax Ground-level fall, present on admission, active. - Patient sustained injuries to her right chest wall causing her significant amount of pain. At discharge says she's getting adequate pain control with a half of Vicodin (and has adequate supply at home) - Patient ambulates well at baseline although she does have significant osteoarthritis. - physical therapy consulted and felt she was appropriate for home health PT Chronic stable conditions Hypertension - Continue home medications - lisinopril and amlodipine GERD - Continue home medications - pantoprazole 20 mg twice a day Anxiety - Continue home medication - alprazolam 0.125 mg 3 times a day when necessary. Exam Vital Signs (Last) Date Time Temp Pulse Resp B/P Pulse Ox O2 Delivery O2 Flow Rate FiO2 08/08/17 10:28 67 08/08/17 09:48 36.8 18 146/66 94 Room Air Exam General: Alert and oriented, no acute distress Heart: Regular Lungs: Clear Abdomen: Soft, non-tender Extremities: No pedal edema Test 08/07/17 20:00 08/07/17 23:26 08/07/17 23:34 08/08/17 06:50 Hold Purple Top Tube Received (Received) Hold Blue Top Tube Received (Received) Hold [place] Top Tube Received (Received) Urine Color Yellow (YELLOW) Urine Appearance Clear (CLEAR,HAZY) Urine pH 7.0 (5.0-8.0) Urine Specific [place] 1.010 (1.003-1.035) Urine Protein Negativemg/dL (NEG,TRACE) Urine Glucose (UA) Negativemg/dL (NEGATIVE) Urine Ketones Negativemg/dL (NEGATIVE) Urine Occult Blood Negative (NEGATIVE) Urine Nitrite Negative (NEGATIVE) Urine Bilirubin Negative (NEGATIVE) Urine Urobilinogen Normalmg/dL (NORMAL) Urine Leukocyte Esterase Negative (NEGATIVE) Urine RBC 0-2/hpf (0-2) Urine WBC 0-5/hpf (0-5) Urine Epithelial Cells Few/hpf (NONE-MOD) Urine Crystals None seen (NONE SEEN) Urine Bacteria Few/hpf (NONE-FEW) Urine Hyaline Casts None/lpf (NONE) Urine Granular Casts None seen (NONE SEEN) Urine Waxy Casts None seen (NONE SEEN) Urine Red Blood Cell Casts None seen (NONE SEEN) Urine White Blood Cell Casts None seen (NONE SEEN) Urine Mucus None seen (None Seen) Urine Trichomonas None seen (NONE SEEN) Urine Yeast None (NONE SEEN) Urinalysis Comment None Urine Culture Reflexed Not indicated Hold Urine Received (Received) White Blood Count 6.4th/mm3 (3.8-10.1) Red Blood Count 3.15mil/mm3 (3.90-5.20) Hemoglobin 9.5g/dL (12.0-15.6) Hematocrit 29.1% (35.0-46.0) Mean Corpuscular Volume 92.4fL (81-100) Mean Corpuscular Hemoglobin 30.2pg (27.0-35.0) Mean Corpuscular Hemoglobin Concent 32.6% (32.0-37.0) Red Cell Distribution Width 15.4% (12.3-15.4) Platelet Count 191bil/L (150-400) Neutrophils (%) (Auto) 57.8% (40-74) Lymphocytes (%) (Auto) 27.8% (14-46) Monocytes (%) (Auto) 11.5% (4-12) Eosinophils (%) (Auto) 2.3% (0-5) Basophils (%) (Auto) 0.3% (0-3) Sodium Level 141mEq/L (134-144) Potassium Level 4.1mEq/L (3.5-5.2) Chloride Level 105mEq/L (97-108) Carbon Dioxide Level 24mmol/L (18-29) Blood Urea Nitrogen 16mg/dL (8-27) Creatinine 0.52mg/dL (0.57-1.00) Estimat Glomerular Filtration Rate 159mL/min (>59) Glucose Level 88mg/dL (60-99) Calcium Level 9.3mg/dL (8.5-10.1) Total Bilirubin 0.4mg/dL (0.0-1.2) Aspartate Amino Transf (AST/SGOT) 27U/L (0-50) Alanine Aminotransferase (ALT/SGPT) 12U/L (0-32) Alkaline Phosphatase 49U/L (25-165) Total Protein 6.3g/dL (6.4-8.4) Albumin 3.7g/dL (3.4-5.0) Discharge Medications Discharge Medications Amlodipine (Amlodipine) 5 Mg Tablet 5 MG PO HS (Reported) Aspirin (Aspirin) 81 Mg Tablet 81 MG PO MORNING (Reported) Omeprazole (Omeprazole) 40 Mg Capsule.dr 40 MG PO BID (Reported) Wheat Dextrin (Benefiber) 3 Gram/4 Gram Powd.pack 2 TSP PO DAILY (Reported) As needed Acetaminophen (Acetaminophen) 500 Mg Tablet 500 MG PO Q6H PRN PRN For Pain ( Reported) Alprazolam (Alprazolam) 0.25 Mg Tablet 0.125-0.25 MG PO TID PRN PRN For HYPERtension (Reported) Bismuth Subsalicylate (Pepto-Bismol) 262 Mg Tab.chew 262 MG PO PRN PRN PRN na ( Reported) Furosemide (Furosemide) 20 Mg Tab 10 MG PO DAILY PRN PRN edema (Reported) Hydrocodone-Acetaminophen 5-325 mg (Hydrocodone-Acetaminophen 5-325 mg) 1 Each Tablet 0.5-1 EACH PO q6 hr PRN PRN For Pain (Reported) Lisinopril (Lisinopril) 10 Mg Tablet 10 MG PO BID PRN PRN SBP>175 (Reported) Nitroglycerin SL (Nitrostat) 0.4 Mg Tab.subl 0.4 MG SL Q5MIN PRN PRN chest pain (Reported) Followup Plan Discharge Diet: No restrictions Discharge Activity: Home Health Phyical Therapy Patient Instructions In addition to checking your lungs have your doctor recheck your anemia and decide if anything further needs to be done. Follow-up with PCP in: 1 week Maile Escalante MD Aug 08, 2017 12:28
--- NOTE | 2017-08-08 13:15 | NUR ---
Discharge Patient given discharge orders. Patient given medication list with written times of next due. Patient given follow up instructions. Patient given informational packets. Patient assisted to main entrance in wheelchair via [employer].
--- NOTE | 2017-08-08 13:34 | NUR ---
Social Work-initial assessment/discharge: Data:See initial assessment. Pt betsy 87 y/o female who was admitted on 08/07/17 for Rib fx per H&P. Pt's insurance is [employer] and PCP is Sirisha Anaya MD. EMR Reviewed. Pt is medically stable for discharge. SW met with pt at bedside, SW role explained. Pt is alert and oriented x3. pt resides at home alone where she remains independent with ADLs. Pt does not drive and uses a fww at baseline. Pt has history with [facility] and has been to SNF. 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 SW discussed DPOA/advanced directive this has been completed, SW encouraged a copy to be brought in. PT has seen pt today and recommended home with HH services. No concerns noted regarding pt's capacity for self care. order received for HH-PT. SW spoke with Pt, silver esther tablet provided. Pt would like to use [facility]. SW called Lori with [facility] and provided her with referral to -PT, access given. F2F and orders faxed in. Pt confirms her friend will provide transport home today. All updated and agreeable to plan. Assessment:pt who would benefit from HH. Plan:Pt to discharge home today via POV.F2F and orders faxed into [facility] for PT services. . All updated and agreeable to plan. KASSIDY Maxwell Addendum: 08/08/17 at 1339 by CJ CAMPOS SS Amended: Links added. Addendum: 08/08/17 at 1434 by CJ VARGAS SW confirmed that [facility] can open with pt either tomorrow or Sunday for PT services. Cj Campos,KASSIDY
== END 2017-08-08 13:18 | disposition home or self-care (01) ==
LOC: SED 19:45 → MPC 23:49
PROVIDERS: ADMIT Internal Medicine; ATTEND Internal Medicine
DX: S27.0XXA Traumatic pneumothorax, initial encounter (principal); S22.31XA Fracture of one rib, right side, initial encounter for closed fracture; I10 Essential (primary) hypertension; K21.9 Gastro-esophageal reflux disease without esophagitis; F41.9 Anxiety disorder, unspecified; I50.9 Heart failure, unspecified; I48.0 Paroxysmal atrial fibrillation; I35.0 Nonrheumatic aortic (valve) stenosis; E78.5 Hyperlipidemia, unspecified; D50.9 Iron deficiency anemia, unspecified; M19.90 Unspecified osteoarthritis, unspecified site; M81.0 Age-related osteoporosis without current pathological fracture; M54.5 Low back pain; W18.30XA Fall on same level, unspecified, initial encounter; Y93.9 Activity, unspecified; Y92.019 Unspecified place in single-family (private) house as the place of occurrence of the external cause; Y99.8 Other external cause status; Z88.2 Allergy status to sulfonamides; Z79.82 Long term (current) use of aspirin; Z88.0 Allergy status to penicillin; Z79.891 Long term (current) use of opiate analgesic; Z87.891 Personal history of nicotine dependence; Z96.653 Presence of artificial knee joint, bilateral; Z96.643 Presence of artificial hip joint, bilateral
CPT/HCPCS: 36415; 71010; 71020; 71250; 80053; 81000; 85025; 96372; 97162; 99285; G0378; J1644